=== PATIENT | male | born 1965 | race Caucasian/White ===

== ENCOUNTER 2023-11-21 07:54 | Outpatient (AMB) | payer BC, SELFPAY ==
--- NOTE | 2023-11-21 08:05 | MHC.OFFVIS ---
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 The patient states that his pain has gotten worse over the last 5 years in spite of continued non operative treatments. He describes his pain as sharp and severe in nature. The patient states that he has had injections in the past. The most recent injection gave him relief for only 1 week. Has done physical therapy which aggravated pain he has also tried Tylenol and anti-inflammatory medicines which gave him minimal relief. The patient has difficulty walking even short distances because of his pain. At this point is left knee pain is interfering with his activities of daily living and his ability to sleep well through the night. Allergies Penicillins Allergy (Intermediate, Verified 11/21/23 08:09) hives Medication List - Last Reconciled 11/21/23 by Eriberto Nuñez MD No Known Home Meds [facility] Surgical History (Updated 11/21/23 @ 08:14 by Analy Phipps CMA) History of surgery on right wrist (Unknown) History of hip surgery (Unknown) Social History (Updated 11/21/23 @ 08:15 by Analy Phipps CMA) Patient Tobacco Use Status: Never used Tobacco Physical Exam Const Other: Well-nourished well-developed very friendly male awake alert and oriented x3 in no acute distress Extrem Other: Bilateral lower extremity examination shows good capillary refill, no skin lesions noted, normal sensation light touch Left knee examination shows a minimal effusion, palpable crepitus with range of motion, pain with range of motion, range of motion from -3 degrees to 115 degrees, no instability Results Reviewed Results Reviewed: X-rays of the patient's left knee show severe joint space narrowing with grade 4 [id number] arthritis in the medial compartment, subchondral sclerosis, osteophyte formation, no acute bony abnormalities Assessment & Plan Assessment & Plan (1) Arthritis of left knee: Code(s): M17.12 - Unilateral primary osteoarthritis, left knee Plan Mr. Trevino presents with progressively worsening left knee pain due to end-stage degenerative joint disease. I had a lengthy discussion with the patient regarding the treatment options. At this point the patient has failed continued non operative treatments. The risks and benefits of left total knee replacement surgery were discussed at length with the patient. The patient wishes to proceed with surgery. I will have my office contact the patient to pick a surgery date. I will see the patient back 1 week prior to his surgery to answer any final questions that he might have. He will follow-up as instructed. I spent 22 minutes in reviewing the patient's records and imaging studies, seeing the patient and documenting in the medical record. Orders: Orders XR knee LT 3V Today M25.562 - Pain in left knee Coding Level of Care Code New Pt Level 2 (03346) Diagnoses Arthritis of left knee M17.12
== END 2023-11-21 08:32 | disposition home or self-care (01) ==
PROVIDERS: Visit Provider Orthopaedic Surgery
DX: M17.12 Unilateral primary osteoarthritis, left knee (principal)
CPT/HCPCS: 99202

== ENCOUNTER 2023-11-21 10:40 | Outpatient (REF) | payer BC, SELFPAY ==
--- NOTE | ~2023-11-21 | XR_ITS ---
EXAMINATION: XR KNEE, LEFT CLINICAL INFORMATION: Left knee pain. COMPARISON: None available. TECHNIQUE: 3 views of of the left knee. FINDINGS: Marked degenerative change seen with narrowing of the medial compartment with sclerosis and osteophyte formation. Milder narrowing of the lateral compartment and patellofemoral compartment. No chondrocalcinosis or joint effusions are seen. No fractures or bony destructive lesions. XR/XR knee LT 3V IMPRESSION: Tricompartmental degenerative changes most marked in the medial compartment.
== END 2023-11-21 10:41 | disposition home or self-care (01) ==
LOC: HO.HOSX 10:40
PROVIDERS: Visit Provider Orthopaedic Surgery
DX: M17.12 Unilateral primary osteoarthritis, left knee (principal)
CPT/HCPCS: 73562

== ENCOUNTER → 2024-01-06 08:47 | Outpatient (BNVA) | payer BC, SELFPAY | PROVIDERS: Visit Provider Orthopaedic Surgery ==

== ENCOUNTER 2024-01-22 07:57 | Outpatient (AMB) | payer BC, SELFPAY ==
--- NOTE | 2024-01-22 08:16 | A.OFFVIS_ITS ---
Intake Vital Signs 01/22/24 08:18 Height 5 ft 7 in Weight 248 lb BMI 38.8 Intake Visit Reasons: pre op left TKA 01/[address] Srivastava Note: Leon is a 58 year old male who presents with complaints of progressively worsening left knee pain. The patient states that his pain has gotten worse over the last 5 years in spite of continued non operative treatments. He describes his pain as sharp and severe in nature. The patient states that he has had injections in the past. The most recent injection gave him relief for only 1 week. Has done physical therapy which aggravated pain he has also tried Tylenol and anti-inflammatory medicines which gave him minimal relief. The patient has difficulty walking even short distances because of his pain. At this point is left knee pain is interfering with his activities of daily living and his ability to sleep well through the night. Allergies Penicillins Allergy (Severe, Verified 01/22/24 08:16) hives Medication List - Last Reconciled 01/22/24 by Eriberto Nuñez MD doxycycline hyclate 100 mg PO BID ergocalciferol (vitamin D2) 1,250 mcg PO QWEEK [facility] Medical History Low vitamin D level Arthritis Surgical History Hx of colonoscopy (~12/2022) History of surgery on right wrist (Unknown) History of hip surgery (~1978) Social History Are you a primary patient care to a significant other at home: No Do you presently have visiting nurse or other home services: No Patient Tobacco Use Status: Never used Tobacco Physical Exam Vital Signs: BMI result Body Mass Index 38.8 Const Other: Well-nourished well-developed very friendly male awake alert and oriented x3 in no acute distress Extrem Other: Bilateral lower extremity examination shows good capillary refill, no skin lesions noted, normal sensation light touch Left knee examination shows a minimal effusion, palpable crepitus with range of motion, pain with range of motion, range of motion from -3 degrees to 115 degrees, no instability Results Reviewed Results Reviewed: X-rays of the patient's left knee show end-stage degenerative joint disease with grade 4 [id number] arthritis, subchondral sclerosis, osteophyte formation, no acute bony abnormalities Assessment & Plan Assessment & Plan (1) Arthritis of left knee: Code(s): M17.12 - Unilateral primary osteoarthritis, left knee Plan Mr. Trevino presents with left knee pain due to end-stage degenerative joint disease. I had a lengthy discussion with the patient regarding the treatment options. At this point he has failed continued non operative treatments. The risks and benefits of left total knee replacement surgery were discussed at length with the patient. The patient wishes to proceed with surgery. guest services assistant will be consulted following his surgery for home physical therapy and nursing. The patient will follow-up as instructed. Feel free to call me at any time should questions regarding his orthopedic management arise. I spent 22 minutes in reviewing the patient's records and imaging studies, seeing the patient and documenting in the medical record. Coding Level of Care Code Est Pt Level 2 (20613) Diagnoses Arthritis of left knee M17.12
[2024-01-22 08:18] VITALS: BMI 38.8
== END 2024-01-22 08:48 | disposition home or self-care (01) ==
PROVIDERS: Visit Provider Orthopaedic Surgery
DX: M17.12 Unilateral primary osteoarthritis, left knee (principal)
CPT/HCPCS: 99024

== ENCOUNTER → 2024-01-22 07:57 | Outpatient (BNVA) | payer BC, SELFPAY | PROVIDERS: Visit Provider Orthopaedic Surgery ==

== ENCOUNTER 2024-01-27 08:12 | Inpatient (IN) | payer BC, SELFPAY ==
[2024-01-13 14:09] VITALS: BP 131/75; PULSE 97; RESP 16; O2SAT 93; BMI 38.0
--- NOTE | 2024-01-13 14:28 | P.CONAN_ITS ---
Documented by User: Radha Cid NP 01/20/24 10:22 HPI - Anesthesia Eval Consult details Narrative: 58yo M for Left Knee Replacement Total Medically cleared O2 sat 92-93% RA at PAT. No O2 sat provided by PCP or Ortho visit notes. Pt denies SOB. Never smoker. +Stop-bang. Sent for CXR. Results review with Dr John. 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 [facility] Active Problems Active Problems: All Active Problems (Updated 01/13/24 @ 14:04 by Carmen Parker RN) Arthritis of left knee (Acute) Left knee pain (Acute) Past Medical History Medical History Low vitamin D level Arthritis Family History Family history of problems with anesthesia: No Surgical History Surgical History Hx of colonoscopy (~12/2022) History of surgery on right wrist (Unknown) History of hip surgery (~1978) History of Problems with Anesthesia: No Social History Social History Are you a primary health care marketing specialist to a significant other at home: No Do you presently have visiting nurse or other home services: No Patient Tobacco Use Status: Never used Tobacco Use of substances other than those prescribed or required for medical reasons: No Have you been hit, kicked, punched, or otherwise hurt by someone within the past year? If so, by whom?: No Are you DNR?: No Advance Directives: No Advance Directives Information Provided: Yes Advance Directives on File: No Recently lost weight without trying: No Nutrition Risks: No Nutritional Risk Poor oral hygiene: No (full cleaning 11/2023) Meds Allergies Allergy/AdvReac Type Severity Reaction Status Date / Time Penicillins Allergy Severe hives Verified 01/27/24 08:13 Home Medications Medication Instructions Recorded Confirmed Last Taken Type ergocalciferol (vitamin D2) 1,250 1,250 mcg PO QWEEK 01/10/24 01/27/24 01/20/24 History mcg (50,000 unit) capsule Exam Height,Weight and Vital Signs: Height 5 ft 8 in Weight 113.398 kg Last Vital Signs Pulse 97 01/13/24 14:09 Resp 16 01/13/24 14:09 BP 131/75 01/13/24 14:09 Pulse Ox 93 01/13/24 14:09 O2 Del Method Room Air 01/13/24 14:09 Pertinent Lab Results Pertinent Lab Results: CBC and BMP 12/2023 from outside facility WNL Narrative Narrative: EKG 12/2023 NSR @ 64 Airway Mallampati Class: III TM Dist: <=3cm Neck ROM: Full Loose/Missing/Broken Teeth: Yes (Pulled molars) Heart: RRR Lungs: CTAB Assessment and Plan Assessment Anesthesia Assessment: Anesthesia Plan Discussed and PAT Visit Final Anesthetic Review Family History of Problems with Anesthesia: No History of Problems with Anesthesia: No Documented by User: Rosalba Bonilla MD 01/27/24 08:42 PMFSH Past Medical History Medical History Low vitamin D level Arthritis Surgical History Surgical History Hx of colonoscopy (~12/2022) History of surgery on right wrist (Unknown) History of hip surgery (~1978) Social History Social History Are you a primary health care marketing specialist to a significant other at home: No Do you presently have visiting nurse or other home services: No Patient Tobacco Use Status: Never used Tobacco Use of substances other than those prescribed or required for medical reasons: No Have you been hit, kicked, punched, or otherwise hurt by someone within the past year? If so, by whom?: No Are you DNR?: No Advance Directives: No Advance Directives Information Provided: Yes Advance Directives on File: No Recently lost weight without trying: No Nutrition Risks: No Nutritional Risk Poor oral hygiene: No (full cleaning 11/2023) Meds Allergies Allergy/AdvReac Type Severity Reaction Status Date / Time Penicillins Allergy Severe hives Verified 01/27/24 08:13 Home Medications Medication Instructions Recorded Confirmed Last Taken Type ergocalciferol (vitamin D2) 1,250 1,250 mcg PO QWEEK 01/10/24 01/27/24 01/20/24 History mcg (50,000 unit) capsule Assessment and Plan Assessment Anesthesia Assessment: Chart Reviewed Final Anesthetic Review NPO: Yes ASA Class: II (obesity ) Final Preanesthetic Review: No Changes in Pt Med Stat, Meds/Allgs Chart Reviewed, Consent Obtained/Reviewed and Anes Risks/Benef Reviewed Patient Risk: Intermediate Procedure Risk: Low Anesthetic Plan Anesthetic Plan: Spinal and Regional Block Disposition: Standard PACU
[2024-01-13 16:18] LABS: MRSA Nasal PCR NEGATIVE (Negative); SA Nasal PCR NEGATIVE (Negative)
[2024-01-27] VITALS (17 sets, daily range): BP systolic 85–155; BP diastolic 49–96; PULSE 51–88; RESP 14–18; TEMP 36.1–36.8; O2SAT 94–100; BMI 37.3
--- NOTE | ~2024-01-27 | XR_ITS ---
EXAMINATION: XR CHEST CLINICAL INFORMATION: Low O2 sat preop. COMPARISON: None available. TECHNIQUE: 2 views of the chest were obtained. FINDINGS: Lung volumes are low. There is no gross pneumothorax. Heart size is normal. Mild degenerative changes in the thoracic spine. No pleural effusion. Left perihilar and bilateral lower lung prominent markings may partially be accentuated due to low lung volumes, but differential considerations include an infectious/inflammatory process and/or atelectasis of uncertain age and etiology. XR/XR chest 2V IMPRESSION: Left perihilar and bilateral lower lung prominent markings may partially be accentuated due to low lung volumes, but differential considerations include an infectious/inflammatory process and/or atelectasis uncertain age and etiology. Repeat PA and lateral views with good inspiratory effort if possible recommended. Direct correlation with prior images is recommended and if prior images are provided, an addendum will be dictated. This study was presented today 01/14/2024 for interpretation. PSA staff will provide results to referring provider at this time.
[2024-01-27] MEDS: Lactated Ringers 1,000 ML 80 ML IVCONT (09:32)
--- NOTE | 2024-01-27 09:40 | PHA.MEDREC ---
Pharmacy Consult ? Medication Reconciliation Pharmacy has REVIEWED the medication reconciliation.
[2024-01-27 13:24] LABS: MRSA Nasal PCR NEGATIVE (Negative); SA Nasal PCR NEGATIVE (Negative)
--- NOTE | 2024-01-27 14:05 | P.BOP_ITS ---
Brief Operative Note Date of Service: 01/27/24 Pre-op diagnosis: Left knee degenerative joint disease Post-op diagnosis: same Procedure: Left total knee arthroplasty Implants: Frank Triathlon cemented posterior stabilized total knee arthroplasty with a femoral component size 5 left, tibial component size 6, polyethylene liner size 6 with 11 mm of thickness, an asymmetric patellar component size 32 with 10 mm of thickness Surgeon: Eriberto Nuñez MD Anesthesia: regional and spinal Was an Plumber Supervisor used for this Procedure?: Yes Plumber Supervisor: Ann Aguilera Estimated blood loss (mL): 200 Pathology: other (Bony fragments from the left femur, tibia and patella) Condition: stable Disposition: PACU
--- NOTE | 2024-01-27 14:07 | P.OP_ITS ---
Operative Note Operative Note Date of Service: 01/27/24 Narrative: After the patient was identified as Leon Trevino and his left knee was initialed by myself the patient was brought to the holding area where a left leg nerve block was performed by the anesthesiologist in routine fashion. The patient was then brought to the operating room where conscious sedation and spinal anesthesia were performed by the anesthesiologist in routine fashion. Because of the patient's allergy to penicillins he was given 900 mg of IV clindamycin preoperatively for infection prophylaxis. The patient's left lower extremity was prepped and draped in sterile fashion. A formal time-out was completed. The patient's left knee was placed onto a small bump to produce 30? of knee flexion during exposure. A #10 scalpel blade was used to make a midline incision extending 1 handbreadth proximal and distal to the patella. A second #10 scalpel blade was used to dissect the subcutaneous tissues down to the extensor mechanism. The subcutaneous flaps were maintained as thick as possible. A medial parapatellar arthrotomy was then performed using a #10 scalpel blade. The arthrotomy was begun just medial to the patellar tendon. The arthrotomy was continued 1 cm medial to the patella and then 5 mm into the medial aspect of the quadriceps tendon. The infrapatellar fat pad was partially excised to help with exposure. The soft tissue retinaculum was raised one-half of the way around the medial aspect of the proximal tibia. The patella was everted and the knee was flexed to 90?. There was no injury to the patellar tendon or its insertion onto the tibial tubercle. A drill bit was introduced into the distal aspect of the femur with a starting point 1 cm anterior to the origin of the posterior cruciate ligament. The intramedullary alignment kenneth was put into place. The distal alignment guide was set for a 5 degree valgus cut. The distal cutting block was put into place and was held with 4 pins. The intramedullary alignment kenneth was removed. Soft tissues were retracted in the distal femoral cut was made using a sagittal saw. The distal aspect of the femur measured to be a size 5 left component. Two drill holes were placed into the distal aspect of the femur marking 3? of external rotation. The distal cutting block was impacted into place and was held with 2 pins. Soft tissues were retracted and the 4 distal femoral cuts were made using a sagittal saw. Final notching and drilling of the distal aspect of the femur were performed in routine fashion. The trial femoral component was impacted into place. The knee was taken through a full range of motion. The patella tracked well. The patella was everted and the knee was flexed to 90?. The trial component was removed and our attention was directed to the proximal tibia. The medial and lateral menisci were removed using a #10 scalpel blade. A small rim of the medial meniscus was left intact to help prevent injury to the medial collateral ligament. A drill bit was then introduced into the proximal tibia with a starting point midway from medial to lateral and one-third of the way posteriorly. The intramedullary alignment kenneth was put into place. The proximal tibial cutting guide was placed over the alignment kenneth in line with the 2nd toe. The guide was held in place using 3 pins. The intramedullary alignment kenneth was removed. Soft tissues were retracted and the proximal tibial cut was made using a sagittal saw. The proximal tibia measured to be a size 6 component. The tibial tray was put into place with a 11 mm liner. The femoral component was impacted into place. The knee was taken through a full range of motion. There was full flexion and full extension. There was no instability with varus or valgus stress testing with the knee in flexion or extension. The patella tracked well with no medially directed force. The rotation of the tibial tray was marked using electrocautery with the knee in extension. The patella was everted and the knee was flexed to 90?. All trial components were removed. The tibial tray was placed onto the proximal tibia in line with the electrocautery meron. The tray was held in place using 3 pins. Final broaching of the proximal tibia was performed in routine fashion. The trial liner and trial femoral component were put into place. The knee was brought into extension and our attention was directed to the patella. The patella measured 25 mm in thickness. The patellar resection guide was set for a 10 mm resection. Soft tissues were retracted and the patella cut was made using a sagittal saw. The remaining patella measured 15 mm in thickness. The undersurface of the patella was measured to be a size 32 asymmetric component. Three drill holes were placed into the undersurface of the patella in routine fashion. The trial component w as put into place. The knee was taken through a full range of motion. The patella tracked well. The patella was everted and the knee was flexed to 90?. All trial components were removed. The knee was once again brought into extension and placed onto a small bump. The knee joint was irrigated with copious amounts of normal saline solution via pulse lavage while the cement was mixed. The patella was everted and the knee was flexed to 90?. A small amount of cement was placed along the posterior aspects of the tibial and femoral components. Cement was then pressurized into the proximal tibia. The tibial component was impacted into place. Any excess cement was removed. The polyethylene liner was then impacted into place. Cement was then pressurized into the distal aspect of the femur. A small amount of cement was placed into the intramedullary canal to help reduce bleeding. The femoral component was impacted into place. Any excess cement was removed. The knee was then brought into extension. Cement was pressurized into the undersurface of the patella. The patellar component was put into place and was held with a patella clamp. Any excess cement was removed. Once the cement had hardened the patellar clamp was removed. The knee was taken through a full range of motion. There was full flexion and extension. There was no instability with varus or valgus stress te sting with the knee in flexion or extension. The patella tracked well with no medially directed force. The knee joint was irrigated with copious amounts of normal saline solution via pulse lavage. Any significant bleeding vessels were coagulated. The patient's left knee was placed onto a small bump. The arthrotomy was closed with #2 Ethibond [id number] interrupted suture as well as #1 Vicryl [id number] interrupted suture. The wound was once again irrigated. The subcutaneous tissues were closed with 0 Vicryl and 2-0 Vicryl interrupted sutures. The skin was closed with skin carlota. Dry sterile dressing and Sj bandages were placed over the patient's left knee. The patient was awake and alert. The patient was transferred to the recovery room in stable condition.
[2024-01-27] MEDS: Lactated Ringers 1,000 ML 100 ML IVCONT (14:27)
[2024-01-27] MEDS: Aspirin 325 MG TABLET PO (19:46)
[2024-01-27] MEDS: methocarbamoL 500 MG TABLET PO (19:46)
[2024-01-27] MEDS: Clindamycin Phosphate/D5W 900 MG/50 ML PIGGYBACK 50 MG IV (20:41)
[2024-01-27] MEDS: oxyCODONE HCl ER 10 MG TAB.ER.12H PO (20:43)
[2024-01-27] MEDS: Gabapentin 100 MG CAPSULE PO (20:44)
[2024-01-27] MEDS: Celecoxib 200 MG CAPSULE PO (20:44)
[2024-01-27] MEDS: Docusate Sodium 100 MG CAPSULE PO (20:44)
[2024-01-27] MEDS: Acetaminophen 325 MG TABLET 650 MG PO (20:54)
[2024-01-28] VITALS (8 sets, daily range): BP systolic 96–136; BP diastolic 56–76; PULSE 69–80; RESP 16–18; TEMP 36.2–36.8; O2SAT 94–99
[2024-01-28] MEDS: Lactated Ringers 1,000 ML 100 ML IVCONT (00:26)
[2024-01-28] MEDS: Clindamycin Phosphate/D5W 900 MG/50 ML PIGGYBACK 50 MG IV ×2 (03:44→14:00)
[2024-01-28] MEDS: Aspirin 325 MG TABLET PO ×2 (05:52→18:08)
[2024-01-28 06:09] LABS: MANUAL DIFF FLAG NO
[2024-01-28 06:19] LABS: Basophils Percent Auto 0.2 % (0-2); Eosinophils Percent Auto 0.1 % (0-4); Hematocrit 35.3 % (42.0-52.0); Hemoglobin 12.3 g/dl (14.0-18.0); Imm Gran Abs Auto 0.04 X10*3/uL (0.00-0.03); Imm Gran Pct Auto 0.3 % (0.0-0.4); Lymphocytes Absolute Auto 1.4 X10*3/uL (1.2-4.9); Lymphocytes Percent Auto 11.2 % (20-40); Mean Corpuscular HGB Conc 34.8 g/dl (31.0-36.0); Mean Corpuscular Hemoglobin 30.3 pg (27.0-33.0); Mean Corpuscular Volume 86.9 fL (80.0-98.0); Mean Platelet Volume 9.9 fL (9.4-12.4); Monocytes Absolute Auto 0.7 X10*3/uL (0.1-1.2); Monocytes Percent Auto 5.2 % (2-11); Neutrophils Absolute Auto 10.4 x10*3/uL (2.0-8.3); Platelet Count 253 X10*3/uL (160-400); Red Blood Count 4.06 X10*6/uL (4.60-5.80); Red Cell Distribution Width 12.5 % (11.0-16.0); White Blood Count 12.5 X10*3/uL (4.8-10.8)
[2024-01-28 06:29] LABS: Anion Gap 11 (12-20); Blood Urea Nitrogen 13 mg/dL (9-16); Calcium 8.6 mg/dL (8.4-10.2); Carbon Dioxide 24 mmol/L (22-29); Chloride 107 mmol/L (96-108); Creatinine Clr Calc Pharmacy 115.9; Estimated Glomerular Filt Rate > 60; Glucose Fasting 104 mg/dL (60-99); Potassium 3.9 mmol/L (3.3-5.1); Sodium 138 mmol/L (135-145)
[2024-01-28] MEDS: methocarbamoL 500 MG TABLET PO ×3 (09:39→19:38)
[2024-01-28] MEDS: Docusate Sodium 100 MG CAPSULE PO ×2 (09:39→19:38)
[2024-01-28] MEDS: oxyCODONE HCl ER 10 MG TAB.ER.12H PO ×2 (09:39→19:38)
[2024-01-28] MEDS: 0.9 % Sodium Chloride Flush 3 ML SYRINGE IVFLUSH (09:39)
[2024-01-28] MEDS: Celecoxib 200 MG CAPSULE PO ×2 (09:39→19:39)
--- NOTE | 2024-01-28 12:08 | P.DS_ITS ---
DS: Providers Provider Date of Service: 01/28/24 Date of admission: 01/27/24 08:12 Primary care physician: Newton Miles MD Consults: 01/27/24 17:43 Consult to Hospitalist Routine Comment: Consulting Provider: Hospitalist Reason For Exam: routine medical management DS: Diagnosis Discharge Diagnosis (1) Status post total left knee replacement: Status: Acute DS: Summary Hospital Course Hospital Course: The patient underwent a successful Left total knee arthroplasty on 01/27/[address] Nuñez, was transferred to PACU and then to the floor to recover. During their stay, their vitals were stable, afebrile at 98.3 . Labs were unremarkable, H/H 12.3/35.3. POD 1 he was started on ASA for DVT ppx, they also received Physical Therapy services twice a day. Physical therapy should include gait training, ROM to tolerance and quad strength. He is WBAT. Prior to discharge, his dressing was clean dry and intact. The Aquacel dressing should remain intact and dry at all times. Any concerns with the dressing, please contact orthopedic office. No showering. The plan is to be discharged home with vn services Time Attestation Discharge Coordination Time (in mins): 30 Quality: Safe Use of Opioids Does Pt have an Active Cancer Diagnosis on the Problem List?: No Quality: Stroke Does the patient have a stroke diagnosis?: No Physical Exam Vital Signs: Vital Signs: Last Vital Signs Temp 98.3 F 01/28/24 11:00 Pulse 79 01/28/24 11:00 Resp 18 01/28/24 11:00 BP 96/56 L 01/28/24 11:00 Pulse Ox 94 01/28/24 11:00 O2 Del Method Room Air 01/28/24 11:00 BMI result Body Mass Index 37.3 Const: General: cooperative, healthy appearing and no acute distress Resp: Effort & Inspection: normal respiratory effort and able to speak in complete sentences Cardio: Rate: regular rate Peripheral pulses: Peripheral pulses 2+ throughout GI: Palpation (GI): Soft to palpation Skin: General skin exam: no rashes or lesions noted Extrem: Other: incision clean dry and intact. Marilyn intact. No erythema or joint effusion. Calf supple nontender. Neurovascularly intact. DS: Data Data Completed and Pending Pending studies at discharge: Pending at discharge 01/27/24 12:01 Surgical [PTH] Routine Labs on day of discharge: Laboratory Results - last 24 hr 01/27/24 01/28/24 08:21 05:43 WBC 12.5 H RBC 4.06 L Hgb 12.3 L Hct 35.3 L MCV 86.9 MCH 30.3 MCHC 34.8 RDW 12.5 Plt Count 253 MPV 9.9 Immature Gran % (Auto) 0.3 Neut % (Auto) 83.0 H Lymph % (Auto) 11.2 L [place] % (Auto) 5.2 Eos % (Auto) 0.1 Baso % (Auto) 0.2 Lymph # (Auto) 1.4 [place] # (Auto) 0.7 Eos # (Auto) 0.0 Baso # (Auto) 0.0 Abs Immat Gran (auto) 0.04 H Absolute Neuts (auto) 10.4 H Absolute Nucleated RBC 0.000 Nucleated RBC % (auto) 0.0 Sodium 138 Potassium 3.9 Chloride 107 Carbon Dioxide 24 Anion Gap 11 L BUN 13 Creatinine 0.83 Estim Creat Clear Calc 115.9 Estimated GFR > 60 Fasting Glucose 104 H Calcium 8.6 Nasal Screen MRSA (PCR) NEGATIVE Nasal S. aureus Screen NEGATIVE Nasal MRSA/S.aureus Interp SEE NOTE Discharge Plan Discharge Anticipated Discharge Date/Time: 01/28/24 12:03 Patient Disposition: Home Health Service Discharge Diagnosis: s/p lt tka Referrals: Ann Aguilera PA-C [Physician Classified Advertising Clerk] - 2 Weeks (02/13/24 14:15 [facility] [place] Ann Aguilera PA-C) Discharge Medications: New docusate sodium 100 mg Capsule 100 mg PO BID 14 Days Qty: 28 0RF celecoxib 200 mg Capsule 200 mg PO BID 30 Days Qty: 60 0RF aspirin 325 mg Tablet 325 mg PO Q12H 42 Days Qty: 84 0RF gabapentin 100 mg Capsule 100 mg PO BEDTIME 7 Days Qty: 7 0RF oxycodone 5 mg Tablet 5 mg PO Q4H PRN (Reason: Pain, Moderate(Pain Scale 4-6)) 7 Days Qty: 42 0RF Rx Instructions: Partial Fill upon patient request. acetaminophen 325 mg Tablet 650 mg PO Q6H PRN (Reason: Pain, Mild (Pain Scale 1-3)) 30 Days Qty: 240 0RF Continued ergocalciferol (vitamin D2) 1,250 mcg (50,000 unit) capsule 1,250 mcg PO QWEEK Discharge Orders: Discharge Order (Routine); Ordered 01/28/24 Ordered By: Santos Pretty Diet: Regular diet Activity on Discharge: Use cane or walker Stand Alone Forms: Patient Portal Discharge page Care Plan Goals: Restore function of joint Health Concerns: none Plan of Treatment: Physical Therapy Pain management DVT prophylaxis Assessment: Physical Therapy for Total knee arthroplasty: WBAT, gait training, ROM 0-12, quad strength * Limit stair climbing * No showering, no tub bath-keep dressing clean, dry and intact * No driving x6 weeks * Continue Aspirin twice a day x 6 weeks * Follow up with [facility] in 2 weeks: 02/12/2414:15 [facility] [place] [facility] SurgeonsAnn Aguilera PA-C
--- NOTE | 2024-01-28 12:09 | HO.POSTANES ---
Post Anesthesia Evaluation Post Anesthesia Evaluation Date of Service: 01/28/24 Vital Signs: Vital Signs Temp Pulse Resp BP Pulse Ox O2 Del Method 01/28/24 11:00 98.3 F 79 18 96/56 L 94 Room Air 01/28/24 08:10 71 114/67 95 01/28/24 07:00 97.1 F 71 18 114/67 95 Room Air 01/28/24 03:00 97.3 F 80 18 110/66 96 Room Air Anesthesia: Spinal and Nerve Block Mental Status: Awake Pain Control: Satisfactory Nausea/Vomiting: None Hydration: Adequate Anesthesia-Related Issues: No Anes. Related Issues
--- NOTE | 2024-01-28 12:37 | MHC.CM.PN ---
EMR REVIEWED, PT S/P [facility] DE LE[facility]N MET W/PT WHO REPORTS HE HAS A ROMMQTE HE RENTS TO, HAS A CANE, FWW AND WC AT HOME AND AT BASELINE HE DOESN'T USE ANY AD'S, NO HOME SERVICES, GOAL AND PLAN IS FOR PT TO RETURN HOME TODAY W/NEW [facility] FOR HOME PT. PT VERIFIES PCP DR TORRES IS CORRECT, COVID VACC X2 AND PT EDUCTAED ON AND COMPLETED A HCP NAMING HIS SISTER REINIER FUENTES [phone] HIS HCA AND NO ALTERNATE AT THIS TIME, COPY UPLOADED TO [facility] AND PLACED IN PAPER CHART.
--- NOTE | 2024-01-28 15:39 | P.PNOP_ITS ---
Subjective Subjective Date of Service: 01/28/24 Interval history: POD 1 s/p LT TKA no overnight events resting in bed- was planning to go home today but after lunch he attempted to work with PT and was in a lot of pain and felt nauseaus denies sob, palpitations, cp Physical Exam Vital Signs: Vital Signs: Last Vital Signs Temp 97.8 F 01/28/24 15:00 Pulse 70 01/28/24 15:00 Resp 18 01/28/24 15:00 BP 113/65 01/28/24 15:00 Pulse Ox 99 01/28/24 15:00 O2 Del Method Room Air 01/28/24 15:00 BMI result Body Mass Index 37.3 Const: General: cooperative, healthy appearing and no acute distress Resp: Effort & Inspection: normal respiratory effort and able to speak in complete sentences Cardio: Rate: regular rate Peripheral pulses: Peripheral pulses 2+ throughout GI: Palpation (GI): Soft to palpation Skin: General skin exam: no rashes or lesions noted Extrem: Other: incision clean dry and intact. [place] intact. No erythema or joint effusion. Calf supple nontender. Neurovascularly intact. Procedures Date of Service Date of Service: 01/28/24 Progress Note: A&P Assessment and plan (1) Status post total left knee replacement: Status: Acute Assessment and Plan: * Continue pain mgmnt * Begin Aspirin for dvt ppx * begin PT for LT TKA * Dispo planning-Pending PT eval, pain mgmnt Need for continued inpatient stay: pain control, pt clearance Time Spent With Patient Time: Total time managing care of this patient today ____ minutes. Quality Stroke Does the patient have a stroke diagnosis?: No VTE Prior VTE?: No VTE Risk Level:: Surgical - very high VTE Device Contraindication: N/A - Device Ordered VTE Drug Contraindication: N/A - Med Ordered
--- NOTE | 2024-01-28 16:03 | MHC.CM.PN ---
PT'S DC CANCELLED D/T INCREASED PAIN AND NAUSEA, ANTIC DC TOMORROW 01/28, CM WILL CONT TO FOLLOW DC NEEDS.
[2024-01-28] MEDS: oxyCODONE HCl Immed Release 5 MG TABLET PO (18:13)
[2024-01-28] MEDS: HYDROmorphone HCl 0.5 MG/0.5 ML SYRINGE IVPUSH (19:20)
[2024-01-28] MEDS: Acetaminophen 325 MG TABLET 650 MG PO (19:28)
[2024-01-28] MEDS: Gabapentin 100 MG CAPSULE PO (19:39)
[2024-01-28] MEDS: oxyCODONE HCl Immed Release 5 MG TABLET 10 MG PO (22:11)
[2024-01-29] VITALS: BP 131/74; PULSE 77; RESP 19; TEMP 36.8; O2SAT 96
[2024-01-29] MEDS: 0.9 % Sodium Chloride Flush 3 ML SYRINGE IVFLUSH ×2 (00:30→07:27)
[2024-01-29 03:41] VITALS: BP 145/87; PULSE 73; RESP 19; TEMP 36.8; O2SAT 97
[2024-01-29] MEDS: Aspirin 325 MG TABLET PO (05:59)
[2024-01-29] MEDS: oxyCODONE HCl Immed Release 5 MG TABLET PO ×2 (06:13→07:32)
[2024-01-29 06:37] LABS: MANUAL DIFF FLAG NO
[2024-01-29 06:41] LABS: Basophils Absolute Auto 0.1 X10*3/uL (0.0-0.2); Basophils Percent Auto 0.5 % (0-2); Eosinophils Absolute Auto 0.1 X10*3/uL (0.0-0.4); Hematocrit 35.8 % (42.0-52.0); Hemoglobin 12.3 g/dl (14.0-18.0); Imm Gran Abs Auto 0.05 X10*3/uL (0.00-0.03); Imm Gran Pct Auto 0.5 % (0.0-0.4); Lymphocytes Absolute Auto 1.7 X10*3/uL (1.2-4.9); Lymphocytes Percent Auto 17.9 % (20-40); Mean Corpuscular HGB Conc 34.4 g/dl (31.0-36.0); Mean Corpuscular Hemoglobin 30.4 pg (27.0-33.0); Mean Corpuscular Volume 88.6 fL (80.0-98.0); Mean Platelet Volume 10.2 fL (9.4-12.4); Monocytes Absolute Auto 0.8 X10*3/uL (0.1-1.2); Monocytes Percent Auto 8.4 % (2-11); Neutrophils Absolute Auto 6.6 x10*3/uL (2.0-8.3); Neutrophils Percent Auto 71.7 % (45-73); Platelet Count 215 X10*3/uL (160-400); Red Blood Count 4.04 X10*6/uL (4.60-5.80); White Blood Count 9.2 X10*3/uL (4.8-10.8)
[2024-01-29 06:58] LABS: Anion Gap 9 (12-20); Blood Urea Nitrogen 11 mg/dL (9-16); Calcium 8.8 mg/dL (8.4-10.2); Carbon Dioxide 28 mmol/L (22-29); Chloride 104 mmol/L (96-108); Creatinine Clr Calc Pharmacy 110.6; Estimated Glomerular Filt Rate > 60; Glucose Fasting 99 mg/dL (60-99); Potassium 4.3 mmol/L (3.3-5.1); Sodium 137 mmol/L (135-145)
[2024-01-29] MEDS: oxyCODONE HCl ER 10 MG TAB.ER.12H PO (07:25)
[2024-01-29] MEDS: methocarbamoL 500 MG TABLET PO (07:26)
[2024-01-29] MEDS: Docusate Sodium 100 MG CAPSULE PO (07:26)
[2024-01-29] MEDS: Celecoxib 200 MG CAPSULE PO (07:26)
[2024-01-29 08:00] VITALS: BP 139/92; PULSE 84; RESP 18; TEMP 36.7; O2SAT 97
[2024-01-29 08:15] VITALS: BP 145/87; PULSE 73; O2SAT 97
--- NOTE | 2024-01-29 10:32 | W.MHC.F2F ---
Service Date Service Date: 01/29/24 Encounter Date of encounter: 01/29/24 Reasons for Services Signs and symptoms assessed: Weakness, poor balance, poor gait mechanics Reason for physical therapy: home safety and mobility, therapeutic exercises, restore joint function, gait/transfer training, ADL training and energy conservation Reason for occupational therapy: home safety and mobility, therapeutic exercises, restore joint function, gait/transfer training, ADL training and energy conservation Overseeing Care: Juan Decker Homebound: Leaving the home is medically contraindicated at this time without the asist of a device and/or another person due th the listed conditions above and below. Reason homebound: unsteady gait / fall risk, pain with ambulation, poor balance / fall risk and unable to drive Homebound supporting statement: Pt. is considered home bound due to recent surgery. Unable to drive, poor balance, poor gait mechanics. Certification: Based on the above findings, I certify that this patient is confined to the home and needs intermittent senior living care, physical therapy and/or speech therapy, or continues to need occupational therapy. The patient is under my care, and I have initiated the establishment of the plan of care. The patient will be followed by a physician who will periodically review the plan of care. Time Spent With Patient Time: Total time managing care of this patient today ____ minutes.
--- NOTE | 2024-01-29 12:14 | MHC.CM.PN ---
PT MEDICALLY CLEARED FOR DC HOME W/NEW [facility] FOR HOME PT, PT HAS ARRANGED TRANSPORT
== END 2024-01-29 11:40 | disposition home health service (06) | DRG 302 ==
LOC: HO.SSSA 08:13 → HO.S3 18:18
PROVIDERS: Nurse Practitioner; Physician Assistant; Admitting Provider Orthopaedic Surgery; PCP Internal Medicine; Visit Provider Orthopaedic Surgery
PROC: 0SRD0J9 Replacement of Left Knee Joint with Synthetic Substitute, Cemented, Open Approach (ICD-10-PCS; CPT 27447; principal; 2024-01-27 10:40)
DX: M17.12 Unilateral primary osteoarthritis, left knee (principal); G89.18 Other acute postprocedural pain; Z79.899 Other long term (current) drug therapy
CPT/HCPCS: 36415; 71046; 80048; 85025; 86850; 86900; 86901; 87640; 87641; 88305; 88311; 97110; 97116; 97161; 97530; C1776; J0131; J0665; J0736; J1100; J1170; J1885; J2250; J2371; J2704; J3370; J7120

== ENCOUNTER → 2024-01-27 08:12 | Outpatient (BNV) | payer BC, SELFPAY | PROVIDERS: Admitting Provider Orthopaedic Surgery; PCP Internal Medicine; Visit Provider Orthopaedic Surgery | DX: Z47.1 Aftercare following joint replacement surgery (principal); Z96.652 Presence of left artificial knee joint | CPT/HCPCS: 27447; 99024; G0180 ==

== ENCOUNTER 2024-02-13 09:15 | Outpatient (REF) | payer BC, SELFPAY ==
--- NOTE | ~2024-02-13 | XR_ITS ---
EXAMINATION: XR KNEE, LEFT CLINICAL INFORMATION: Pain. COMPARISON: Radiographs dated 11/21/2023. TECHNIQUE: Lateral and axial views of the left knee are submitted, together with an AP upright view of the bilateral knees. FINDINGS: Prosthetic components of the left total knee arthroplasty are appropriately aligned. No periprosthetic fracture. Gas from recent surgery is present in the joint and surrounding soft tissues. A joint effusion is present. The lateral medial joint space compartments of the right knee are well-maintained. No significant varus or valgus configuration is noted. XR/XR knee LT 3V IMPRESSION: Appropriate alignment of the left total knee arthroplasty.
== END 2024-02-13 09:16 | disposition home or self-care (01) ==
LOC: HO.HOSX 09:15
PROVIDERS: Visit Provider Physician Assistant
DX: Z47.1 Aftercare following joint replacement surgery (principal); Z96.652 Presence of left artificial knee joint
CPT/HCPCS: 73562

== ENCOUNTER 2024-02-13 14:04 | Outpatient (AMB) | payer BC, SELFPAY ==
--- NOTE | 2024-02-13 14:22 | A.OFFVIS_ITS ---
Intake Intake Visit Reasons: PO left TKA 01/27/[address] Srivastava Note: Leon is a 58 year old male who presents today for a post op appointment s/p left TKA 01/27/24 Patient reports he is doing well. He states that everything feels great. Allergies Penicillins Allergy (Severe, Verified 02/13/24 14:25) hives HPI PO left TKA 01/27/24 with HPI Details 58-year-old male who presents in the off ice today 17 days status post left total knee arthroplasty, which was performed on 01/27/[address] Nuñez. Patient reports he is doing well and everything feels great. PFS Medical History Low vitamin D level Arthritis Surgical History Hx of colonoscopy (~12/2022) History of surgery on right wrist (Unknown) History of hip surgery (~1978) Social History Household Members: None Housing: House Are you a primary healthcare receptionist to a significant other at home: No Do you presently have visiting nurse or other home services: No Patient Tobacco Use Status: Never used Tobacco service: No Review of Systems Const All systems reviewed & are unremarkable except as noted in HPI and below Physical Exam Const General: cooperative, healthy appearing and no acute distress Resp Effort & Inspection: normal respiratory effort and able to speak in complete sentences Cardio Rate: regular rate Peripheral pulses: Peripheral pulses 2+ throughout GI Palpation (GI): Soft to palpation Skin Lesions: no lesions Rashes: no rashes Extrem Other: Left knee: Incision site is clean, dry, and intact. Marilyn intact. No surrounding erythema or drainage. No signs of infection. ROM is 0-120 degrees. NVI. Assessment & Plan Assessment & Plan (1) Status post total left knee replacement: Code(s): Z96.652 - Presence of left artificial knee joint Plan Mr. Trevino is a 58-year-old male who presents in the office today 17 days status post left total knee arthroplasty, which was performed on 01/27/[address] Nuñez. Patient reports he is doing well and everything feels great. A refill for Gabapentin 100 mg PO bedtime, Docusate sodium 100 mg PO BID, and Oxycodone 5 mg PO Q4H PRN. Patient will transition to out patient physical therapy. Follow up will be in [address] Nuñez, or sooner if needed. X-rays of the left knee which were obtained while in the office today and were reviewed by me, Ann Aguilera PA-C, revealed intact orthopedic hardware with proper alignment. Current pain regiment: -Acetaminphen 650 mg PO Q6H PRN -Oxycodone 5 mg PO Q4H PRN Orders: Orders XR knee LT 3V 02/13/24 M25.569 - Pain in unspecified knee Patient Instructions: Scribed by Sola Martin, manager medical writing, for Ann Aguilera PA-C on 02/13/2024 at 2:07 pm, EST. Coding Level of Care Code Global (34108) Diagnoses Status post total left knee replacement Z96.652
== END 2024-02-13 15:01 | disposition home or self-care (01) ==
PROVIDERS: Visit Provider Physician Assistant
DX: Z96.652 Presence of left artificial knee joint (principal)
CPT/HCPCS: 99024

== ENCOUNTER 2024-03-05 09:00 | Outpatient (AMB) | payer BC, SELFPAY ==
--- NOTE | 2024-03-05 09:04 | A.OFFVIS_ITS ---
Intake Visit Reasons: 6 week PO left TKA 01/27/[address] Srivastava Note: Leon is a 58 year old male who presents for his post operative appointment s/p left TKA on 01/27/24 Patient reports he is still having some pain, more painful at night. He continues with his home exercise program. He does take oxycodone as needed for his discomfort. Allergies Penicillins Allergy (Severe, Verified 03/05/24 09:08) hives Medication List - Last Reconciled 03/05/24 by Eriberto Nuñez MD acetaminophen 650 mg (2 x 325 mg) PO Q6H PRN 30 days aspirin 325 mg PO Q12H 42 days celecoxib 200 mg PO BID 30 days clindamycin HCl 600 mg (2 x 300 mg) PO ONCE 1 day docusate sodium 100 mg PO BID 14 days ergocalciferol (vitamin D2) 1,250 mcg PO QWEEK gabapentin 100 mg PO BEDTIME 7 days oxycodone 5 mg PO Q6H PRN 7 days PFSH Medical History Low vitamin D level Arthritis Surgical History Hx of colonoscopy (~12/2022) History of surgery on right wrist (Unknown) History of hip surgery (~1978) Social History Household Members: None Housing: House Are you a primary healthcare network pricing consultant to a significant other at home: No Do you presently have visiting nurse or other home services: No Patient Tobacco Use Status: Never used Tobacco service: No Physical Exam Const Other: Well-nourished well-developed very friendly male awake alert and oriented x3 in no acute distress Extrem Other: Bilateral lower extremity examination shows good capillary refill, no skin lesions noted, normal sensation light touch Left knee examination shows that the surgical incision is well healed, no erythema, full active extension and flexion to 120 degrees, his patella tracks well Assessment & Plan Assessment & Plan (1) Status post total left knee replacement: Code(s): Z96.652 - Presence of left artificial knee joint Category: Medical Plan Mr. Trevino continues to do very well after undergoing left total knee replacement surgery on 01/27/2024. He will continue with his home exercise program. He does know to take antibiotics before any dental work. He will contact me prior to his follow-up appointment in 8 weeks should any questions or concerns arise. Feel free to call me at any time should questions regarding his orthopedic management arise. Medications: New oxycodone Partial Fill upon patient request. 5 mg PO Q8H PRN 40 tabs 0RF pain Coding Level of Care Code Global (65528) Diagnoses Status post total left knee replacement Z96.652
== END 2024-03-05 09:33 | disposition home or self-care (01) ==
PROVIDERS: Visit Provider Orthopaedic Surgery
DX: Z96.652 Presence of left artificial knee joint (principal)
CPT/HCPCS: 99024

== ENCOUNTER → 2024-03-05 09:00 | Outpatient (BNVA) | payer BC, SELFPAY | PROVIDERS: Visit Provider Orthopaedic Surgery ==

== ENCOUNTER 2024-04-28 08:38 | Outpatient (AMB) | payer BC, SELFPAY ==
--- NOTE | 2024-04-28 08:40 | MHC.OFFVIS ---
Vital Signs 04/28/24 08:55 Height 5 ft 8 in Weight 250 lb BMI 38.0 Intake Visit Reasons: PO left TKA 01/27/24 with Intake Note: Leon is a 58 year old male who presents today for a post operative visit s/p Left TKA 01/27/24. Patient reports that he is doing well with no concerns. He continues with his home stretching program. He denies any fevers or chills. He does not take any medicines for his discomfort. Allergies Penicillins Allergy (Severe, Verified 03/05/24 09:08) hives [facility] Medical History Low vitamin D level Arthritis Surgical History Hx of colonoscopy (~12/2022) History of surgery on right wrist (Unknown) History of hip surgery (~1978) Social History Household Members: None Housing: House Are you a primary patient centered care specialist to a significant other at home: No Do you presently have visiting nurse or other home services: No Patient Tobacco Use Status: Never used Tobacco service: No Physical Exam Vital Signs: BMI result Body Mass Index 38.0 Extrem Other: Left knee examination shows that the surgical incision is well healed, no erythema, full active extension and flexion to 120 degrees, his patella tracks well Assessment & Plan Assessment & Plan (1) Status post total left knee replacement: Code(s): Z96.652 - Presence of left artificial knee joint Category: Surgical Plan Mr. Trevino continues to do very well after undergoing left total knee replacement surgery on 01/27/2024. He will continue with his home exercise program. He does know to take antibiotics before any dental work. Will contact me prior to his follow-up appointment in 2 months should any questions or concerns arise. Feel free to call me at any time should questions regarding his orthopedic management arise. Coding Level of Care Code Global (58206) Diagnoses Status post total left knee replacement Z96.652
[2024-04-28 08:55] VITALS: BMI 38.0
== END 2024-04-28 09:13 | disposition home or self-care (01) ==
PROVIDERS: PCP Internal Medicine; Visit Provider Orthopaedic Surgery
DX: Z47.1 Aftercare following joint replacement surgery (principal); Z96.652 Presence of left artificial knee joint
CPT/HCPCS: 99213

== ENCOUNTER → 2024-04-28 08:38 | Outpatient (BNVA) | payer BC, SELFPAY | PROVIDERS: PCP Internal Medicine; Visit Provider Orthopaedic Surgery ==

== ENCOUNTER 2024-06-30 08:10 | Outpatient (AMB) | payer BC, SELFPAY ==
--- NOTE | 2024-06-30 08:20 | A.OFFVIS_ITS ---
Vital Signs 06/30/24 08:25 Height 5 ft 8 in Weight 250 lb BMI 38.0 Intake Visit Reasons: OV- left TKA follow up 01/27/[address] Srivastava Note: Leon is a 58 year old male who presents to the office today for a left TKA follow up 01/27/24. Patient reports he is doing well. He reports mild intermittent discomfort in his left knee. He continues with his home exercise program. He does not take any medicines for his discomfort. He denies any fevers or chills. Allergies Penicillins Allergy (Severe, Verified 06/30/24 08:24) hives [facility] Medical History Low vitamin D level Arthritis Surgical History Hx of colonoscopy (~12/2022) History of surgery on right wrist (Unknown) History of hip surgery (~1978) Social History Household Members: None Housing: House Are you a primary health care legal assistant to a significant other at home: No Do you presently have visiting nurse or other home services: No Patient Tobacco Use Status: Never used Tobacco service: No Physical Exam Vital Signs: BMI result Body Mass Index 38.0 Const Other: Well-nourished well-developed very friendly male awake alert and oriented x3 in no acute distress Extrem Other: Bilateral lower extremity examination shows good capillary refill, no skin lesions noted, normal sensation light touch Left knee examination shows that the surgical incision is well healed, no erythema, full active extension and flexion to 120 degrees, his patella tracks well Results Reviewed Results Reviewed: X-rays of the patient's left knee taken today show a total knee arthroplasty in good position with no signs of loosening, no acute bony abnormalities Assessment & Plan Assessment & Plan (1) Left knee pain: Code(s): M25.562 - Pain in left knee Category: Medical Plan Mr. Trevino continues to do very well after undergoing left total knee replace ment surgery on 01/27/2024. He will continue with his home exercise program. Does know to take antibiotics before any dental work. He will contact me prior to his annual follow-up appointment should any questions or concerns arise. Feel free to call me at any time should questions regarding his orthopedic management arise. I spent 22 minutes in reviewing the patient's records and imaging studies, seeing the patient and documenting in the medical record. Orders: Orders XR knee LT 3V Today M25.562 - Pain in left knee Coding Level of Care Code Est Pt Level 3 (93842) Diagnoses Left knee pain M25.562
[2024-06-30 08:25] VITALS: BMI 38.0
== END 2024-06-30 08:45 | disposition home or self-care (01) ==
PROVIDERS: PCP Internal Medicine; Visit Provider Orthopaedic Surgery
DX: Z47.1 Aftercare following joint replacement surgery (principal); Z96.652 Presence of left artificial knee joint; M25.562 Pain in left knee
CPT/HCPCS: 99213

== ENCOUNTER 2024-06-30 10:37 | Outpatient (REF) | payer BC, SELFPAY ==
--- NOTE | ~2024-06-30 | XR_ITS ---
EXAMINATION: XR KNEE, LEFT CLINICAL INFORMATION: M25.562 - Pain in left knee COMPARISON: Knee radiographs 02/13/2024 TECHNIQUE: 3 views of the knee FINDINGS: No acute fracture or dislocation. Status post left total knee arthroplasty in anatomic alignment. No evidence of hardware fracture or complication. Quadriceps tendon enthesopathy. No joint effusion. Soft tissues are unremarkable. XR/XR knee LT 3V IMPRESSION: * Status post left total knee arthroplasty in anatomic alignment. No evidence of hardware fracture or complication. Electronically signed by: Adelaida Cloud MD 07/23/2024 03:33 PM EDT
== END 2024-06-30 10:38 | disposition home or self-care (01) ==
LOC: HO.HOSX 10:37
PROVIDERS: Visit Provider Orthopaedic Surgery
DX: M25.562 Pain in left knee (principal)
CPT/HCPCS: 73562

== ENCOUNTER 2024-12-09 08:28 | Outpatient (AMB) | payer BC, SELFPAY ==
--- NOTE | 2024-12-09 08:38 | A.OFFVIS_ITS ---
Vital Signs 12/09/24 08:41 Height 5 ft 8 in Weight 260 lb BMI 39.5 Intake Visit Reasons: Left shoulder pain and weakness Intake Note: Leon is a 59 year old right hand dominant male who presents with complaints of progressively worsening left shoulder pain and weakness. The patient states that he 1st injured his left shoulder several years ago. States that he had an MRI at that time which showed a full-thickness rotator cuff tear involving ?1 of the tendons?. He did not undergo surgery. Has done physical therapy exercises which aggravated his pain. He has also tried Tylenol and anti-inflammatory medicines which gave him minimal relief. Has had cortisone injections in the past which gave him only temporary relief. Reports weakness when lifting his left hand above shoulder height. Allergies Penicillins Allergy (Severe, Verified 12/09/24 08:40) hives Medication List - Last Reconciled 12/09/24 by Eriberto Nuñez MD No Known Home Meds [facility] Medical History Low vitamin D level Arthritis Surgical History Hx of colonoscopy (~12/2022) History of surgery on right wrist (Unknown) History of hip surgery (~1978) Social History (Updated 12/09/24 @ 08:42 by CLARISSA Kingston) Household Members: None Housing: House Are you a primary congregational care pastor to a significant other at home: No Do you presently have visiting nurse or other home services: No Patient Tobacco Use Status: Never used Tobacco service: No 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, 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 Physical Exam Vital Signs: BMI result Body Mass Index 39.5 Const Other: Well-nourished well-developed very friendly male awake alert and oriented x3 in no acute distress Extrem Other: Bilateral upper extremity examination shows good capillary refill, no skin lesions noted, normal sensation light touch Left shoulder examination shows decreased active range of motion but almost full passive range of motion when compared to his right shoulder, 4/5 strength with supraspinatus testing, positive impingement signs, no instability Results Reviewed Results Reviewed: X-rays of the patient's left shoulder taken previously show a type 2 acromion, severe acromioclavicular joint narrowing, no acute bony abnormalities Assessment & Plan Assessment & Plan (1) Rotator cuff insufficiency of left shoulder: Code(s): M25.312 - Other instability, left shoulder Category: Medical Plan Mr. Trevino presents with progressively worsening left shoulder pain and weakness most likely due to worsening of his rotator cuff tear. Thus, I will send the patient for an MRI of his left shoulder for further evaluation. I will see him back once the MRI is completed to discuss the findings and treatment options. Feel free to call me at any time should questions regarding his orthopedic management arise. I spent 22 minutes in reviewing the patient's records and imaging studies, seeing the patient and documenting in the medical record. Orders: Orders XR shoulder LT min 2V Today M25.512 - Pain in left shoulder MR shoulder LT wo con Today M25.312 - Other instability, left shoulder Coding Level of Care Code Est Pt Level 3 (12590) Complex EM visit Add On G2211 Diagnoses Rotator cuff insufficiency of left shoulder M25.312
[2024-12-09 08:41] VITALS: BMI 39.5
== END 2024-12-09 09:02 | disposition home or self-care (01) ==
PROVIDERS: PCP Internal Medicine; Visit Provider Orthopaedic Surgery
DX: M25.312 Other instability, left shoulder (principal)
CPT/HCPCS: 99213

== ENCOUNTER → 2024-12-09 08:31 | Outpatient (BNV) | payer BC, SELFPAY | PROVIDERS: Visit Provider Radiology Diagnostic Radiology | DX: M19.012 Primary osteoarthritis, left shoulder (principal) | CPT/HCPCS: 73030 ==

== ENCOUNTER 2024-12-09 10:03 | Outpatient (REF) | payer BC, SELFPAY ==
--- NOTE | ~2024-12-09 | XR_ITS ---
EXAMINATION: XR SHOULDER 2 OR MORE VIEWS LEFT HISTORY: M25.512 - Pain in left shoulder COMPARISON: There are no prior studies available for comparison. FINDINGS: Two views of the left shoulder are submitted. Osseous mineralization is normal. There is irregularity of the humeral head in the region of the greater tuberosity which may represent an old healed fracture. No acute displaced fracture is seen. The glenohumeral joint is maintained. There is moderate osteoarthritis of the AC joint, with joint space narrowing and osteophyte formation. A tiny soft tissue calcification adjacent to the humeral head may be related to the rotator cuff. XR/XR shoulder LT min 2V IMPRESSION: Moderate osteoarthritis of the AC joint. Possible old healed fracture involving the greater tuberosity. Clinical correlation is recommended. Probable rotator cuff calcification. Electronically signed by: Hira Pinto MD 12/10/2024 07:12 AM FREDY DOTY
--- OUTSIDE RECORDS SUMMARY | 2024-12-10 13:14 | XMS_ITS | Clinical Summary ---
Author Organization [facility] Address [address] [place] [phone] Phone Care Team Providers Care Broke Handler Name Role Phone Newton Miles MD Primary Care Provider Allergies Active Allergy Reactions Criticality Noted Date Comments Penicillins Hives High 03/20/2006 Medications Medication Sig Dispensed Refills Start Date End Date Status ergocalciferol (VITAMIN D-2) 1,250 mcg (50,000 unit) capsule Take 1 Capsule by mouth once a week. 01/01/2024 Active doxycycline hyclate (VIBRA-TABS) 100 mg tablet Take 1 Tablet by mouth 2 times daily. 01/21/2024 Active Active Problems Problem Noted Date Diagnosed Date Morbid obesity with BMI of 40.0-44.9, adult 10/11 Arthritis of knee 02/08/2014 Encounters Date Type Department Care Team Description 11/18/2024 Telephone Adult [address] [phone] Newton Miles MD Referral (Referral for [facility]) from Last 3 Months Immunizations Name Administration Dates Next Due Td Tetanus diptheria (Tdvax) 7yo and older 09/06 Tdap Tetanus diptheria acell ular pertussis (Boostrix; Adacel) 7yo and older 06/03/2014 Surgical History Surgery Date Site/Laterality Comments OTHER SURGICAL HISTORY PROCEDURE: [place] ARTHROSCOPY HIP W/FEMOROPLASTY; COMMENT: 1978 COLONOSCOPY 02/13/16 PROCEDURE: HISTORICAL COLONOSCOPY; COMMENT: tics, hemorrhoids and mediocre bowel prep; repeat in 1 year OTHER SURGICAL HISTORY 05/03/2017 PROCEDURE: COLON CA SCRN NOT HI RSK IND; COMMENT: adenoma, tics and hemorrrhoids; repeat in 5 yrs Medical History Medical History Date Comments Achilles tendinitis DX:Achilles tendinitis Family History Medical History Relation Name Comments Kidney cancer Father Bladder Cancer Mother Coronary artery disease Neg Hx Diabetes Neg Hx Relation Name Status Comments Father rectal cancer Mother Alive bladder cancer, Social History Tobacco Use Types Packs/Day Years Used Date Smoking Tobacco: Never Smokeless Tobacco: Never Alcohol Use Standard Drinks/Week Comments Not Currently 0 (1 standard drink = 0.6 oz pur e alcohol) Sex and Gender Information Value Date Recorded Sex Assigned at Male 10/29/2024 9:16 AM EST Gender Identity Male 10/29/2024 9:16 AM EST Sexual Orientation Straight 10/29/2024 9: 16 AM EST Obstetrics History Last Filed Vital Signs Vital Sign Reading Time Taken Comments Blood Pressure 122/74 01/21/2024 2:28 PM EDT Pulse 86 01/21/2024 2:28 PM EDT Temperature - - Respiratory Rate - - Oxygen Saturation - - Inhaled Oxygen Concentration - - Weight 113 kg (250 lb) 01/21/2024 2:28 PM EDT Height 172.7 cm (5' 8 ) 01/21/2024 2:28 PM EDT Body Mass Index 38.01 01/21/2024 2:28 PM EDT Plan of Treatment Health Maintenance Due Date Last Done Comments Zoster Vaccines (1 of 2) 2014 Depression Screening 10/21/2022 HIV Screening 10/21/2022 Social Influencers of Health Screening 10/21/2022 DTaP,Tdap,and Td Vaccines (3 - Td or Tdap) 06/03/2024 06/03/2014, 09/06/2005 COVID-19 Vaccine (3 - 2023-2 5 season) 2024 07/27/2021, 06/29/2021 Influenza Vaccine (#1) 2024 RSV Immunization Patients 60 + Years Old (1 - Risk 60-74 years 1-dose series) 2024 Colorectal Cancer Screening: Colonoscopy 12/23/2028 12/23/2023 Cholesterol Screening (Lipid Panel) 01/01/2029 01/01/2024 Hepatitis C Screening Completed 02/23/2016 HIB Vaccines Aged Out No longer eligi ble based on patient's age to complete this topic HPV Vaccines Aged Out No longer eligi ble based on patient's age to complete this topic Hepatitis A Vaccines Aged Out No long er eligible based on patient's age to complete this topic Hepatitis B Vaccines Aged Out No long er eligible based on patient's age to complete this topic IPV Vaccines Aged Out No longer eligi ble based on patient's age to complete this topic MMR Vaccines Aged Out No longer eligi ble based on patient's age to complete this topic Meningococcal ACWY Vaccine Aged Out N o longer eligible based on patient's age to complete this topic Pneumococcal Vaccine: Pediatrics (0 to 5 Years) and At-Risk Patients (6 to 64 Years) Aged Out No longer eligible b ased on patient's age to complete this topic RSV Immunization Patients Under 20 months Aged Out No longer eligible b ased on patient's age to complete this topic Varicella Vaccines Aged Out No longer eligible based on patient's age to complete this topic Procedures Procedure Name Priority Date/Time Associated Diagnosis Comments LIPID PANEL Routine 01/01/2024 COLONOSCOPY Routine 12/23/2023 HEPATITIS C SCREENING Routine 02/23/2016 from Last 3 Months or Most Recently Relevant to Health Maintenance Results * (ABNORMAL) Lipid panel (01/01/2024) [facility] LDL/HDL Ratio 3 0 - 4 Triglycerides 82 0 - 150 mg/dL Cholesterol 212(A) 0 - 200 mg/dL HDL 77 40 mg/dL LDL Cholesterol 119(A) 0 - 100 mg/dL Blood Venous blood specimen / Unknown Historical Provider LAB BLOOD ORDERAB LES * Colonoscopy (12/23/2023) Pathologist [facility] Colonoscopy No Interpretation , Abstracted Anatomical Region Laterality Modality Other Historical Provider MD JOURDAN Buitrago * Hepatitis C Screening (02/23/2016) Pathologist [facility] Hepatitis C Screening Abstracted Historical Provider MD JOURDAN Buitrago from Last 3 Months or Most Recently Relevant to Health Maintenance Care Teams Broke Handler Relationship Specialty Start Date End Date Newton Miles MD [address] [place] [address] PCP - General Internal Medicine 06/12/22
--- OUTSIDE RECORDS SUMMARY | 2024-12-10 13:14 | XMS_ITS | Encounter Summary ---
Author Organization [facility] Address [address] [place] [address] Care Team Providers Care Earth Observations Chief Scientist Name Role Phone Newton Miles MD Primary Care Provider [phone] Reason for Referral * Consultation (Routine) - Closed Specialty Diagnoses / Procedures Referred By Annabel swenson Referred To Contact Orthopaedics Diagnoses Left shoulder pain, unspecified chronicity Arthritis of knee Newton Miles MD [address] [place] [phone] Eriberto Nuñez MD [address] [place] [phone] Referral ID Status Reason Start Date Expiration Date V isits Requested Visits Authorized [id number] Closed Specialty Services Required 11/23/2024 11/23/2025 6 6 Reason for Visit * Reason Onset Date Comments Referral 11/18/2024 Referral for [facility] Encounter Details Date Type Department Care Team (Late st Contact Info) Description 11/18/2024 Telephone Adult Medicine [address] [phone] Newton Miles MD [address] [place] [phone] Referral (Referral for [facility]) Social History Tobacco Use Types Packs/Day Years Used Date Smoking Tobacco: Never Smokeless Tobacco: Never Alcohol Use Standard Drinks/Week Comments Not Currently 0 (1 standard drink = 0.6 oz pur e alcohol) Sex and Gender Information Value Date Recorded Sex Assigned at Male 10/29/2024 9:16 AM EST Gender Identity Male 10/29/2024 9:16 AM EST Sexual Orientation Straight 10/29/2024 9: 16 AM EST documented as of this encounter Progress Notes * Newton Miles MD - 11/18/2024 10:11 PM EST Ortho referral is ordered * Karissa Chamberlain - 11/18/2024 3:50 PM EST Request for an insurance referral Caller: n/a Office: [facility] Insurance: [facility] ID: [id number] Provider: Dr Eriberto Nuñez DOS: 12/09/24 Visits: 6 Dx code: M25.512 IMPORTANT Pls copy and paste this into the order. Otherwise, it will not be processed as an ins referral documented in this encounter Plan of Treatment Scheduled Referrals Name Type Priority Associated Diagnoses Order Schedule Ambulatory referral to Orthopedic Outpatient Referral Routine Left shoulder pain, unspecified chronicity Arthritis of knee 1 Occurrences starting 11/18/2024 until 11/18/2025 documented as of this encounter Visit Diagnoses Diagnosis Left shoulder pain, unspecified chronicity- Primary Arthritis of knee Unspecified arthropathy, lower leg documented in this encounter Care Teams Earth Observations Chief Scientist Relationship Specialty Start Date End Date Newton Miles MD [address] [place] [address] PCP - General Internal Medicine 06/12/22 documented as of this encounter
== END 2024-12-09 10:04 | disposition home or self-care (01) ==
LOC: HO.HOSX 10:03
PROVIDERS: Visit Provider Orthopaedic Surgery
DX: M25.512 Pain in left shoulder (principal)
CPT/HCPCS: 73030

== ENCOUNTER → 2024-12-29 07:12 | Outpatient (BNV) | payer BC, SELFPAY | PROVIDERS: PCP Internal Medicine; Visit Provider Radiology Diagnostic Radiology | DX: M25.312 Other instability, left shoulder (principal); M75.122 Complete rotator cuff tear or rupture of left shoulder, not specified as traumatic; S43.432A Superior glenoid labrum lesion of left shoulder, initial encounter | CPT/HCPCS: 73221 ==

== ENCOUNTER 2024-12-29 07:15 | Outpatient (REF) | payer BC, SELFPAY ==
--- NOTE | ~2024-12-29 | MR_ITS ---
CLINICAL HISTORY: M25.312 - Other instability, left shoulder MR left shoulder without contrast ankle Comparison: None Findings: No fracture or dislocation of the osseous structures. Superior subluxation of the humeral head with a trace amount of edema in the acromion and the adjacent humeral head at their contact sites. There is osteophytosis of the inferior aspect of the acromion.. There is joint space narrowing, osteophytosis and a trace amount of subchondral edema of the acromioclavicular joint, degenerative. Small joint effusion. Small amount of fluid in the subacromial/subdeltoid and subcoracoid bursa. There is a complete tear of the supraspinatus tendon with retraction and moderate muscular atrophy. There is a complete tear of the infraspinatus tendon with retraction and severe muscular atrophy. There is prominent increased signal in the subscapularis tendon with suspected partial tear. No retraction or muscular atrophy. Teres minor is unremarkable. The labrum is torn throughout. There is partial-thickness glenohumeral chondromalacia with near-complete cartilage loss of the humeral head and a fissure within the cartilage of the superior aspect of the glenoid. There is humeral osteophytosis. The bicipital labral anchor is increased in signal. The long head of the biceps tendon is enlarged and increased in signal with partial/interstitial tears. No complete tear or retraction. The coracoacromial ligament is intact. The coracohumeral ligament is thinned. Cutaneous and subcutaneous tissues are normal. The quadrilateral space is unremarkable. Impression: Complete tear of the supraspinatus and infraspinatus tendons with retraction and muscular atrophy. Subsequent superior subluxation of the humeral head with a trace amount of edema in the acromion and the adjacent humeral head at their contact sites with osteophytosis of the inferior aspect of the acromion. Severe subscapularis tendinopathy with partial tear. Small joint effusion. Small amount of fluid in the subacromial/subdeltoid and subcoracoid bursa. Extensive labral tear. Biceps tendinopathy with partial tear of the long head of the biceps tendon. This document has been electronically signed by: Sara Marina MD on 12/30/2024 14:55:44
--- OUTSIDE RECORDS SUMMARY | 2024-12-29 07:19 | XMS_ITS | Clinical Summary ---
Author Organization [facility] Address [address] [place] [phone] Phone Care Team Providers Care Chief Meter Reader Name Role Phone Newton Miles MD Primary Care Provider Allergies Active Allergy Reactions Criticality Noted Date Comments Penicillins Hives High 03/20/2006 Medications ergocalciferol (VITAMIN D-2) 1,250 mcg (50,000 unit) capsule Take 1 Capsule by mouth once a week. 01/01/2024 Active doxycycline hyclate (VIBRA-TABS) 100 mg tablet Take 1 Tablet by mouth 2 times daily. 01/21/2024 Active Active Problems Problem Noted Date Diagnosed Date Morbid obesity with BMI of 40.0-44.9, adult 10/11 Arthritis of knee 02/08/2014 Encounters Date Type Department Care Team Description 11/18/2024 Telephone Adult [address] [phone] Newton Miles MD Referral (Referral for [facility]) from Last 3 Months Immunizations Name Administration Dates Next Due Td Tetanus diptheria (Tdvax) 7yo and older 09/06 Tdap Tetanus diptheria acell ular pertussis (Boostrix; Adacel) 7yo and older 06/03/2014 Surgical History Surgery Date Site/Laterality Comments OTHER SURGICAL HISTORY PROCEDURE: [place] ARTHROSCOPY HIP W/FEMOROPLASTY; COMMENT: 1978 COLONOSCOPY 02/13/16 [...] Assigned at Male 10/29/2024 9:16 AM EST Legal Sex Male 11:46 AM EST Gender Identity Male 10/29/2024 9:16 [...] Health Maintenance Due Date Last Done Comments Pneumococcal Vaccine: 50+ Years (1 of 1 - PCV) 2014 Zoster Vaccines (1 of 2) 2014 Depression [...] patient's age to complete this topic Meningococcal B Vacine Aged Out No lo nger eligible based on patient's age to complete [...] Maintenance Results * (ABNORMAL) Lipid panel (01/01/2024) LDL/HDL Ratio 3 0 - 4 Triglycerides 82 0 - 150 mg/dL Cholesterol 212(A) 0 - 200 mg/dL HDL 77 >=40 mg/dL LDL Cholesterol 119(A) 0 - 100 mg/dL Blood Venous blood specimen / Unknown Historical Provider LAB BLOOD ORDERABLES Lakisha l Result * Colonoscopy (12/23/2023) Pathologist Pending sale to [facility] Colonoscopy No Interpretation , Abstracted Anatomical Region Laterality Modality Other Historical Provider HEALTH MAINTENANCE Final Result * Hepatitis C Screening (02/23/2016) Hepatitis C Screening Abstracted Historical Provider HEALTH MAINTENANCE Final Result from Last 3 Months or Most Recently Relevant to Health Maintenance Insurance Care Teams Chief Meter Reader Relationship Specialty Start Date End Date Newton Miles MD [address] [place] [address] PCP - General Internal Medicine 06/12/22
--- OUTSIDE RECORDS SUMMARY | 2024-12-29 07:19 | XMS_ITS | Encounter Summary ---
Author Organization [facility] Address [address] [place] [address] Care Team Providers Care Community Health Worker Name Role Phone Newton Miles MD Primary Care Provider [phone]- [phone] Reason for Referral * Consultation (Routine) - Closed Specialty Diagnoses / Procedures Referred By Annabel swenson Referred To Contact Orthopaedics Diagnoses Left shoulder pain, unspecified chronicity Arthritis of knee Newton Miles MD [address] [place] [phone] Phone: tel: fax: Eriberto Nuñez MD [address] [place] [phone] Phone: tel: Referral ID Status Reason Start Date Expiration Date V isits Requested Visits Authorized [id number] Closed Specialty Services Required 11/23/2024 11/23/2025 6 6 Reason for Visit * Reason Onset Date Comments Referral 11/18/2024 Ref[place] [facility] Encounter Details Date Type Department Care Team (Late st Contact Info) Description 11/18/2024 Telephone Adult Medicine [address] [phone] Newton Miles MD [address] [place] [phone] Referral (Ref[place] [facility] Social History Tobacco Use Types [...] for an insurance referral Caller: n/a Office: [facility] Insurance: [facility] ID: [id number] Provider: Dr Eriberto Nuñez DOS: 12/09/24 Visits: [...] leg documented in this encounter Care Teams Community Health Worker Relationship Specialty Start Date End Date Newton Miles MD [address] [place] [address] PCP - General Internal Medicine 06/12/22 documented as of this encounter
== END 2024-12-29 07:16 | disposition home or self-care (01) ==
LOC: HO.MRI 07:15
PROVIDERS: PCP Internal Medicine; Visit Provider Orthopaedic Surgery
DX: S46.812A Strain of other muscles, fascia and tendons at shoulder and upper arm level, left arm, initial encounter (principal)
CPT/HCPCS: 73221

== ENCOUNTER 2025-01-20 07:33 | Outpatient (AMB) | payer BC, SELFPAY ==
--- NOTE | 2025-01-20 07:48 | MHC.OFFVIS ---
Vital Signs 01/20/25 07:49 Height 5 ft 8 in Weight 260 lb BMI 39.5 Intake Visit Reasons: MRI Review Lt Shld Intake Note: Leon is a 59 year old right hand dominant male who presents with complaints of progressively worsening left shoulder pain and weakness. The patient states that he 1st injured his left shoulder several years ago. States that he had an MRI at that time which showed a full-thickness rotator cuff tear involving ?1 of the tendons?. He did not undergo surgery. Has done physical therapy exercises which aggravated his pain. He has also tried Tylenol and anti-inflammatory medicines which gave him minimal relief. Has had cortisone injections in the past which gave him only temporary relief. Reports weakness when lifting his left hand above shoulder height. The patient states that his symptoms have gotten somewhat better over the last few weeks. Allergies Penicillins Allergy (Severe, Verified 01/20/25 07:49) hives Medication List - Last Reconciled 01/20/25 by Eriberto Nuñez MD No Known Home Meds [facility] Medical History Low vitamin D level Arthritis Surgical History Hx of colonoscopy (~12/2022) History of surgery on right wrist (Unknown) History of hip surgery (~1978) Social History (Updated 12/09/24 @ 08:42 by CLARISSA Kingston) Household Members: None Housing: House Are you a primary childcare administrator to a significant other at home: No Do you presently have visiting nurse or other home services: No Patient Tobacco Use Status: Never used Tobacco service: No 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, 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 Physical Exam Vital Signs: BMI result Body Mass Index 39.5 Const Other: Well-nourished well-developed very friendly male awake alert and oriented x3 in no acute distress Extrem Other: Left shoulder examination shows decreased range of motion when compared to his right shoulder, 3/5 strength with supraspinatus testing, no instability Results Reviewed Results Reviewed: MRI of the patient's left shoulder shows a large, chronic rotator cuff tear involving the supraspinatus and infraspinatus tendons with retraction almost to the glenoid as well as a high-riding humeral head Assessment & Plan Assessment & Plan (1) Rotator cuff insufficiency of left shoulder: Code(s): M25.312 - Other instability, left shoulder Category: Medical Plan Mr. Trevino presents with left shoulder pain and weakness due to a chronic rotator cuff tear. I had a lengthy discussion with the patient regarding the treatment options. At this point the patient's symptoms are tolerable to him. He wishes to hold off on reverse total shoulder replacement for as long as possible. I agree with this plan. Will continue with his activity modifications. He will follow up with me on an as-needed basis should his symptoms worsen in any way. Feel free to call me at any time should questions regarding his orthopedic management arise. I spent 22 minutes in reviewing the patient's records and imaging studies, seeing the patient and documenting in the medical record. Coding Level of Care Code Est Pt Level 3 (87593) Complex EM visit Add On G2211 Diagnoses Rotator cuff insufficiency of left shoulder M25.312
[2025-01-20 07:49] VITALS: BMI 39.5
== END 2025-01-20 08:17 | disposition home or self-care (01) ==
LOC: HO.HOS 07:33
PROVIDERS: PCP Internal Medicine; Visit Provider Orthopaedic Surgery
DX: M75.122 Complete rotator cuff tear or rupture of left shoulder, not specified as traumatic (principal); M25.312 Other instability, left shoulder
CPT/HCPCS: 99213

== ENCOUNTER → 2025-01-20 07:33 | Outpatient (BNVA) | payer BC, SELFPAY | PROVIDERS: PCP Internal Medicine; Visit Provider Orthopaedic Surgery ==

== ENCOUNTER 2025-08-02 13:41 | Outpatient (AMB) | payer OTHER, SELFPAY ==
--- NOTE | 2025-08-02 14:03 | MHC.OFFVIS ---
Vital Signs 08/02/25 14:10 Height 5 ft 8 in Weight 260 lb BMI 39.5 Intake Visit Reasons: Right shoulder pain and weakness Intake Note: Leon is a 59 year old male right hand dominant who presents with complaints of progressively worsening right shoulder pain and weakness. The patient did injure his left shoulder several years ago. He had an MRI of his left shoulder which showed a chronic, massive rotator cuff tear. The patient states that he injured his right shoulder several months ago. He fell onto his right arm and had acute onset of pain. Since that time he has had difficulty lifting his right hand above shoulder height. He has tried physical therapy which seemed to aggravate his pain. He has also tried Tylenol and anti-inflammatory medicines which gave him minimal relief. The patient states that his right shoulder pain and weakness or now interfering with his activities of daily living and his ability to sleep well through the night. Allergies Penicillins Allergy (Severe, Verified 08/02/25 14:10) hives Medication List - Last Reconciled 08/02/25 by Eriberto Nuñez MD No Known Home Meds [facility] Medical History Low vitamin D level Arthritis Surgical History Hx of colonoscopy (~12/2022) History of surgery on right wrist (Unknown) History of hip surgery (~1978) Social History (Updated 12/09/24 @ 08:42 by CLARISSA Kingston) Household Members: None Housing: House Are you a primary child care center administrator to a significant other at home: No Do you presently have visiting nurse or other home services: No Patient Tobacco Use Status: Never used Tobacco service: No 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, 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 Physical Exam Vital Signs: BMI result Body Mass Index 39.5 Const Other: Well-nourished well-developed very friendly male awake alert and oriented x3 in no acute distress Extrem Other: Right shoulder examination shows decreased active range of motion when compared to his left shoulder, 4/5 strength with supraspinatus testing, positive impingement signs, no instability Results Reviewed Results Reviewed: X-rays of the patient's right shoulder taken at [facility] show no acute bony abnormalities Assessment & Plan Assessment & Plan (1) Rotator cuff insufficiency of right shoulder: Code(s): M25.311 - Other instability, right shoulder Category: Medical Plan Mr. Trevino presents with right shoulder pain and weakness most likely due to a full-thickness rotator cuff tear. Thus, I will send the patient for an MRI of his right shoulder for further evaluation. I will see him back once the MRI is completed to discuss the findings and treatment options. Feel free to call me at any time should questions regarding his orthopedic management arise. I spent 20 minutes in reviewing the patient's records and imaging studies, seeing the patient and documenting in the medical record. Orders: Orders MR shoulder RT wo con 08/03/25 M25.311 - Other instability, right shoulder Coding Level of Care Code Est Pt Level 3 (43784) Complex EM visit Add On G2211 Diagnoses Rotator cuff insufficiency of right shoulder M25.311
[2025-08-02 14:10] VITALS: BMI 39.5
--- OUTSIDE RECORDS SUMMARY | 2025-08-02 16:08 | XMS_ITS | Clinical Summary ---
Demographics Address [address] [place] [address] [place] [phone] Home Phone
== END 2025-08-02 14:34 | disposition home or self-care (01) ==
LOC: HO.HOS 13:41
PROVIDERS: PCP Internal Medicine; Visit Provider Orthopaedic Surgery
DX: M25.311 Other instability, right shoulder (principal)
CPT/HCPCS: 99213

== ENCOUNTER → 2025-08-02 13:41 | Outpatient (BNVA) | payer OTHER, SELFPAY | PROVIDERS: PCP Internal Medicine; Visit Provider Orthopaedic Surgery | DX: M25.511 Pain in right shoulder (principal); M25.311 Other instability, right shoulder | CPT/HCPCS: 99212 ==

== ENCOUNTER 2025-08-30 07:23 | Outpatient (REF) | payer OTHER, SELFPAY ==
--- NOTE | ~2025-08-30 | MR_ITS ---
EXAMINATION: MR SHOULDER WITHOUT CONTRAST, RIGHT CLINICAL INFORMATION: Instability COMPARISON: None available. TECHNIQUE: MRI of the shoulder without contrast was performed on a high-field scanner. FINDINGS: ROTATOR CUFF: Supraspinatus and infraspinatus: Full-thickness tear of the supraspinatus and anterior fibers infraspinatus measuring 2.4 cm AP, up to approximately 1.4 cm medial-lateral. There is moderate grade partial thickness articular aspect tear of the infraspinatus posterior to this, involving a segment approximately 0.7 x 2.6 cm (AP x ML). Intact fibers demonstrate mild-moderate tendinosis. Teres minor: Intact. Subscapularis tendon: Mild tendinosis, with intrasubstance partial tear distally. No muscle atrophy or fatty infiltration. BICEPS: Proximal biceps tendinosis with fraying/partial tearing. CORACOACROMIAL ARCH: The undersurface of the acromion is curved with no subacromial spur. Moderate acromioclavicular arthritis. LABRUM/CAPSULE: Superior and posterior labral degenerative fraying/tearing. T2 signal in the posterior portion of the inferior labrum, suspicious for a tear. GLENOHUMERAL JOINT/MARROW: There is edema in the posterior, lateral humeral head, with the component of linear/curvilinear signal changes. This could reflect osseous contusion, possible component of undisplaced fracture plane. No aggressive marrow replacing lesion. Small effusion, mild synovitis/debris. MR/MR shoulder RT wo con IMPRESSION: * Full-thickness tear of the supraspinatus and anterior fibers infraspinatus measuring 2.4 cm AP. Moderate grade partial-thickness articular aspect tear posterior to this measuring 0.7 cm AP. Mild-moderate supraspinatus and infraspinatus tendinosis. * Mild subscapularis tendinosis, intrasubstance partial tear distally. * Proximal biceps tendinosis, fraying/partial tearing. * Superior and posterior labral degenerative fraying/tearing. Probable tear of the posterior portion of the inferior labrum. *Moderate acromioclavicular arthritis. *Findings in the posterior lateral humeral head could reflect osseous contusion, possible component of undisplaced fracture plane. Clinically correlate. *Small glenohumeral joint effusion. Mild synovitis/debris. Electronically signed by: John Espinoza MD 08/30/2025 10:08 AM EDT
--- OUTSIDE RECORDS SUMMARY | 2025-08-30 07:25 | XMS_ITS | Encounter Summary ---
Author Organization [facility] Address [address] [place] [address] Phone Care Team Providers Care Qa Auditor Name Role Phone Newton Miles MD Unavailable [phone] Newton Miles MD Primary Care Provider Encounter Details Date Type Department Care Team (Late st Contact Info) Description 09/01/2024 Procedure Pass MRI, [facility] - [address], [address] [place] [address] Social History Tobacco Use Types Packs/Day Years Used Date Smoking Tobacco: Never Assessed Education Answer Date Recorded Are you interested in more education? Not on ryan e 2024 Are you concerned about learning? Not on file 2024 No 2024 No 2024 Digital Access Answer Date Recorded No 2024 No 2024 Reliable internet access at home? Not on file 2024 Device with a working camera? Not on file Sex and Gender Information Value Date Recorded Sex Assigned at Male 07/08/2024 10:42 AM EDT Legal Sex Male 10:39 AM EDT Gender Identity Male 07/08/2024 10:42 AM EDT Sexual Orientation Straight 07/08/2024 10 :42 AM EDT documented as of this encounter Plan of Treatment Not on file documented as of this encounter Visit Diagnoses Not on filedocumented in this encounter Care Teams Qa Auditor Relationship Specialty Start Date End Date Newton Miles MD PCP - General Internal Medicine 09/01/24 Newton Miles MD Internal Medicine 08/06/24 documented as of this encounter Additional Source Comments The information contained in this document represents components of the legal health record. It is not the complete legal health record.[facility]
--- OUTSIDE RECORDS SUMMARY | 2025-08-30 07:26 | XMS_ITS | Encounter Summary ---
Author Organization [facility] Address [address] [place] [address] Phone Care Team Providers Care Swimming Pool Cleaner Name Role Phone Newton Miles MD Unavailable [phone] Newton Miles MD Primary Care Provider Encounter Details Date Type Department Care Team (Late st Contact Info) Description 10/01/2024 Procedure Pass [facility]PT [address] [place] [id number] Social History Tobacco Use Types Packs/Day Years Used Date Smoking Tobacco: Never Smokeless Tobacco: Never Alcohol Use Standard Drinks/Week Comments Yes 4 (1 standard drink = 0.6 oz pur e alcohol) Education Answer Date Recorded Are you interested in more education? Not on ryan e 2024 Are you concerned about learning? Not on file 2024 No 2024 No 2024 Digital Access Answer Date Recorded No 2024 No 2024 Reliable internet access at home? Not on file 2024 Device with a working camera? Not on file Intimate Partner Violence Answer Date R ecorded Are you denied basic needs s uch as food, clothing, or medical care? No 10/01/2024 In the past 12 months have y ou been in a relationship with a person who hurts, threatens, or tries to control you? No 10/01/2024 Are you denied basic needs s uch as food, clothing, or medical care? No 10/01/2024 In the past 12 months have y ou been in a relationship with a person who hurts, threatens, or tries to control you? No 10/01/2024 Sex and Gender Information Value Date Recorded Sex Assigned at Male 07/08/2024 10:42 AM EDT Legal Sex Male 10:39 AM EDT Gender Identity Male 07/08/2024 10:42 AM EDT Sexual Orientation Straight 07/08/2024 10 :42 AM EDT documented as of this encounter Functional Status * Calculated C-SSRS Risk Score (Lifetime/Recent) Answer Date of Assessment Author No Risk Indicated 10/01/2024 8:03 AM Sara Mckinnon, RN * [place] Suicide Severity Rating Scale (Screener/Recent Self-Report) Question Answer Date of Assessment Author 1. Wish to be (Past 1 Month) No 024 8:03 AM Sara Mckinnon, RN 2. Non-Specific Active Suici dia Thoughts (Past 1 Month) No 10/01/2024 8:03 AM Hector Mckinnon RN 6. Suicidal Behavior (Lifetime) No 8:03 AM Sara Mckinnon RN documented as of this encounter Plan of Treatment Not on file documented as of this encounter Visit Diagnoses Not on filedocumented in this encounter Care Teams Swimming Pool Cleaner Relationship Specialty Start Date End Date Newton Miles MD PCP - General Internal Medicine 09/01/24 Newton Miles MD Internal Medicine 08/06/24 documented as of this encounter Additional Source Comments The information contained in this document represents components of the legal health record. It is not the complete legal health record.[facility]
--- OUTSIDE RECORDS SUMMARY | 2025-08-30 07:26 | XMS_ITS | Encounter Summary ---
Author Organization [facility] Address [address] [place] [address] Phone Care Team Providers Care Administrative Appeals Tribunal Member Name Role Phone Newotn Miles MD Unavailable [phone] Newton Miles MD Primary Care Provider Encounter Details Date Type Department Care Team (Latest Contact Info) Description 09/07/2024 Ancillary Orders X-ray, [facility] - [address], [address] [place] [address] Beena Hagan MD [address] [place] [address] [address] [place] [address] [email or web address] Bilateral ankle pain, unspecified chronicity (Primary Dx); Insertional tendinopathy of left Achilles tendon Social History Tobacco Use Types Packs/Day Years [...] on file documented as of this encounter Results * XR Orbit For Foreign Body (Bilateral) (09/09/2024 2:50 PM EDT) Anatomical Region Laterality Modality Face Radiographic Ml ging 09/09/2024 2:5 1 PM EDT Impressions 09/09/2024 2:52 PM EDT No radiopaque foreign body. Narrative 09/09/2024 2:52 PM EDT XR ORBIT FOR FOREIGN BODY (BILATERAL) Referring clinician's provided indication for this examination in [facility]: * Ankle pain, tendon abnormality suspected, neg xray; Retained Foreign Body suspected; Left Ankle MRI evaluating insertional achilles tendonopathy COMPARISON: No relevant comparison. FINDINGS: No radiopaque foreign body. Multifocal dental augmentation and extraction. Procedure Note Lamin Anderson MD - 09/09/2024 XR ORBIT FOR FOREIGN BODY (BILATERAL) Referring clinician's provided indication for this examination in [facility]: *Ankle pain, tendon abnormality suspected, neg xray; Retained Foreign Bodysuspected; Left Ankle MRI evaluating insertional achilles tendonopathy COMPARISON: No relevant comparison. FINDINGS: No radiopaque foreign body. Multifocal dental augmentation andextraction. IMPRESSION: No radiopaque foreign body. Beena Dewey MD IMG XR HEAD AND SHUNT SERIES Final Result documented in this encounter Visit Diagnoses Diagnosis Bilateral ankle pain, unspecified chronicity- Primary Insertional tendinopathy of left Achilles tendon Bilateral ankle pain, unspecified chronicity Insertional tendinopathy of left Achilles tendon documented in this encounter Care Teams Administrative Appeals Tribunal Member Relationship Specialty Start Date End Date Newton Miles MD PCP - General Internal Medicine 09/01/24 Newton Miles MD Internal Medicine 08/06/24 documented as of this encounter Additional Source Comments The information contained in this document represents components of the legal health record. It is not the complete legal health record.[facility]
--- OUTSIDE RECORDS SUMMARY | 2025-08-30 07:26 | XMS_ITS | Clinical Summary ---
Author Organization [facility] Address [address] [facility] [address] [place] [address] Phone Care Team Providers Care Industrial Psychologist Name Role Phone Newton Miles MD Unavailable [phone] Newton Miles MD Primary Care Provider Allergies Active Allergy Reactions Criticality Noted Date Comments Penicillins Hives High 09/30/2024 Medications oxyCODONE 5 MG immediate release tablet Take 1 tablet (5 mg total) by mouth every 6 (six) hours as needed. Partial fill ok 24 tablet 4 Active Additional Information Patient not taking.Reported on 10/16/2024 ondansetron (ZOFRAN) 4 MG tablet Take 1 tablet (4 mg total) by mouth every 8 (eight) hours as needed for nausea. 21 tablet 4 Active docusate sodium (COLACE) 100 MG capsule Take 1 capsule (100 mg total) by mouth 2 (two) times a day. 4 Active aspirin 81 MG EC tabletIndicatio ns:Pain of both heels Take 1 tablet (81 mg total) by mouth daily. 45 tablet 4 Active Active Problems Problem Noted Date Diagnosed Date Achilles tendinitis of both lower extremities Pain of both heels 09/01/2024 Achilles tendon contracture, bilateral 4 Social History Tobacco Use Types Packs/Day Years Used Date Smoking Tobacco: Never Smokeless Tobacco: Never Tobacco Cessation:Counseling Given: Not Answered Alcohol Use Standard Drinks/Week Comments Yes 4 [...] Orientation Straight 07/08/2024 10 :42 AM EDT Last Filed Vital Signs Vital Sign Reading Time Taken Comments Blood Pressure 140/88 10/01/2024 1:28 PM EST Pulse 58 10/01/2024 1:15 PM EST Temperature 35.6 C (96 F) 10/01/2024 1:26 PM EST Respiratory Rate 16 10/01/2024 1:26 PM EST Oxygen Saturation 98% 10/01/2024 1:26 PM EST Inhaled Oxygen Concentration - - Weight 113.4 kg (250 lb) 10/01/2024 8:01 AM EST Height 172.7 cm (5' 8 ) 10/01/2024 8:01 AM EST Body Mass Index 38.01 10/01/2024 8:01 AM EST Plan of Treatment Health Maintenance Due Date Last Done Comments LIPID PANEL 1964 DEPRESSION SCREENING 1976 HEPATITIS C SCREENING 1982 HIV ONE-TIME SCREENING (18-6 5 YEARS) 1982 SCREENING FOR DIABETES 1999 COLOGUARD 2009 COLONOSCOPY 2009 COLORECTAL CANCER SCREENING 2009 FIT TEST 2009 FOBT 2009 SIGMOIDOSCOPY 2009 VIRTUAL COLONOSCOPY 2009 PNEUMOCOCCAL VACCINES (50+ years) (1 of 1 - PCV) 2014 ZOSTER VACCINES (1 of 2) 2014 Adult Td,Tdap Booster 06/03/2024 06/03/2014 , 09/06/2005 INFLUENZA VACCINE (#1) 2025 COVID-19 VACCINE (3 - 2024-2 6 season) 2025 07/27/2021, 06/29/2021 RSV VACCINE (1 - 1-dose 75+ series) 2039 SMOKING STATUS SCREENING (On ce After 26 Yrs) Completed 09/30/2024 HEPATITIS A VACCINES Aged Out No long er eligible based on patient's age to complete this topic HIB VACCINES Aged Out No longer eligi ble based on patient's age to complete this topic MENINGOCOCCAL VACCINES (ACWY) Aged Out No longer eligible based on patient's age to complete this topic MENINGOCOCCAL VACCINES (B) Aged Out N o longer eligible based on patient's age to complete this topic Medical Devices Implanted Type Area Playground Worker Device Identifier Shelf Expiration Date Model / Serial / Lot Screw Screw Right: Hip Tkr Left: Knee Insurance Care Teams Industrial Psychologist Relationship Specialty Start Date End Date Newton Miles MD PCP - General Internal Medicine 09/01/24 Newton Miles MD Internal Medicine 08/06/24 Additional Source Comments The information contained in this document represents components of the legal health record. It is not the complete legal health record.[facility]
--- OUTSIDE RECORDS SUMMARY | 2025-08-30 07:26 | XMS_ITS | Clinical Summary ---
Author Organization [facility] Address [address] [place] [address] Phone Care Team Providers Care Staking Engineer Name Role Phone Newton Miles MD Primary Care Provider [phone] Allergies Active Allergy Reactions Criticality Noted Date Comments Penicillins Hives High 03/20/2006 Medications ibuprofen (ADVIL,MOTRIN) 600 mg tablet Take 1 tablet (600 mg total) by mouth 3 (three) times a day if needed for mild pain (pain). 60 tablet 07/06/2025 Active Active Problems Problem Noted Date Diagnosed Date Morbid obesity with BMI of 4 0.0-44.9, adult (CMS/[facility] V24, [facility] V28) 10/28/2024 Arthritis of knee 02/08/2014 Encounters Date Type Department Care Team Description 07/06/2025 3:00 PM EDT - 07/06/2025 11:59 PM EDT Hospital Encounter [address] [phone] Acute pain of right shoulder; Fall, initial encounter Discharge Disposition: Home or Self Care 07/06/2025 2:30 PM EDT Office Visit Adult Medicine [address] [phone] Newton Miles MD Acute pain of right shoulder (Primary Dx); Fall, initial encounter 06/25/2025 Telephone Adult Medicine [address] [phone] Newton Miles MD from Last 3 Months Immunizations Immunization Administration Dates Next Due Td Tetanus diptheria (Tdvax) 7yo and older 09/06 Tdap Tetanus diptheria acell ular pertussis (Boostrix; Adacel) 7yo and older 06/03/2014 Surgical History Surgery Date Site/Laterality Comments OTHER SURGICAL HISTORY PROCEDURE: [place] ARTHROSCOPY HIP W/FEMOROPLASTY; COMMENT: 1978 COLONOSCOPY 02/13/16 [...] drink = 0.6 oz pur e alcohol) Housing Instability Answer Date Recorde d Are you worried that in the next 2 months you may not have stable housing? No 06/29/2025 Food Access & Nutrition Answer Date Rec orded Do you have access to a vari ety of food including fruits and vegetables? Yes 06/29/2025 Access to Healthcare Answer Date Record ed Within the last 3 months, radha cartagena many times did you visit the emergency department for your medical care? 0 06/29/2025 Health Literacy Answer Date Recorded How often do you need to hav e someone help you when you read instructions, pamphlets, or other written material from your doctor or pharmacy? Rarely 06/29/2025 Caregiver: How often do you need to have someone help you when you read instructions, pamphlets, or other written material from your doctor or pharmacy? Not on file 06/29/2025 Financial Risk Answer Date Recorded How hard is it for you to pa y for the very basics like food, housing, medical care, and air conditioning / heating? Not very hard 06/29/2025 Transportation Answer Date Recorded Has the lack of transportati on kept you from meetings, work, or from getting things needed for daily living? No Has the lack of transportati on kept you from medical appointments or from getting medications? No 06/29/2025 Social Isolation Answer Date Recorded How often do you feel lonely or isolated from th ose around you? Rarely 06/29/2025 Food Risk Answer Date Recorded Within the past 12 months we worried whether our food would run out before we got money to buy more. Never true 06/29/2025 Within the past 12 months th e food we bought just didn't last and we didn't have money to get more. Never true 06/29/2025 Dependent Care Answer Date Recorded Do you need help finding or paying for care for your loved ones. For example, child development consultant or elderly care for an older adult? No 06/29/2025 Education Answer Date Recorded Do you think completing more education or training, like finishing a GED, going to college, or learning a trade, would be helpful for you? No 06/29/2025 Employment and Income Answer Date Recor ded During the last four weeks, have you been actively looking for work? No 06/29/2025 Living Situation Answer Date Recorded What is your living situation? Unrecognized valu e 06/29/2025 Sex and Gender Information Value Date Recorded Sex Assigned at Male 10/29/2024 9:16 AM EST Legal Sex Male 11:46 AM EST Gender Identity Male 10/29/2024 9:16 AM EST Sexual Orientation Straight 10/29/2024 9: 16 AM EST Obstetrics History Last Filed Vital Signs Vital Sign Reading Time Taken Comments Blood Pressure 134/80 07/06/2025 3:02 PM EDT Pulse 80 07/06/2025 2:32 PM EDT Temperature 35.9 C (96.7 F) 07/06/2025 2:32 PM EDT Respiratory Rate - - Oxygen Saturation - - Inhaled Oxygen Concentration - - Weight 117 kg (259 lb) 07/06/2025 2:32 PM EDT Height 172.7 cm (5' 8 ) 07/06/2025 2:32 PM EDT Body Mass Index 39.38 07/06/2025 2:32 PM EDT Plan of Treatment Upcoming Encounters Date Type Department Care Team (Late st Contact Info) Description 01/07/2026 8:30 AM EST Office Visit Adult Medicine [address] [phone] Newton Miles MD [address] [place], [place] Health Maintenance Due Date Last Done Comments Pneumococcal Vaccine: 50+ Years (1 of 1 - PCV) 2014 RSV Immunization Adult Patients (1 - Risk 50-74 years 1-dose series) 2014 Zoster Vaccines (1 of 2) 2014 HIV Screening 10/21/2022 DTaP,Tdap,and Td Vaccines (3 - Td or Tdap) 06/03/2024 06/03/2014, 09/06/2005 COVID-19 Vaccine (3 - 2024-2 6 season) 2025 07/27/2021, 06/29/2021 Influenza Vaccine (#1) 2025 Social Influencers of Health Screening 06/29/2026 06/29/2025 Colorectal Cancer Screening: Colonoscopy 12/23/2028 12/23/2023 Cholesterol Screening (Lipid Panel) 01/01/2029 01/01/2024 Hepatitis C Screening Completed 02/23/2016 Depression Screening Completed 06/29/2025 HIB Vaccines Aged Out No longer eligi [...] age to complete this topic Meningococcal B Vaccine Aged Out No l onger eligible based on patient's age to complete this topic RSV Immunization Patients Under 20 months Aged Out No longer eligible b ased on patient's age to complete this topic Varicella Vaccines Aged Out No longer eligible based on patient's age to complete this topic Procedures Procedure Name Priority Date/Time Associated Diagnosis Comments XR SHOULDER 2+ VIEWS RIGHT Routine 07/06/2025 3:17 PM EDT Acute pain of right shoulder Fall, initial encounter LIPID PANEL Routine 01/01/2024 COLONOSCOPY Routine 12/23/2023 HEPATITIS C SCREENING Routine 02/23/2016 from Last 3 Months or Most Recently Relevant to Health Maintenance Results * XR Shoulder 2+ Views Right (07/06/2025 3:17 PM EDT) Anatomical Region Laterality Modality Upper Extremities, Shoulder Right Radi ographic Imaging 07/06/2025 11:0 4 PM EDT Narrative 07/06/2025 11:05 PM EDT Right shoulder, 4 views. History status post fall. Pain. There is no visible displaced fractures. There is no dislocations. There are mild degenerative changes in the AC joint and glenohumeral joint. There is no abnormal soft tissue calcifications. CONCLUSIONS: No visible fractures or dislocations. Degenerative changes as detailed. -------- FINAL REPORT -------- Dictated By: Holly Whitt Dictated Date: 07/06/2025 23:04 ET Assigned Physician: Holly Whitt Reviewed and Electronically Signed By: Holly Whitt Signed Date: 07/06/2025 23:05 ET Workstation ID: [id number] Transcribed By: Self Edit Transcribed Date: 07/06/2025 23:04 ET Procedure Note Holly Whitt MD - 07/06/2025 Right shoulder, 4 views. History status post fall. Pain. There is no visible displaced fractures. There is no dislocations. Thereare mild degenerative changes in the AC joint and glenohumeral joint.There is no abnormal soft tissue calcifications. CONCLUSIONS: No visible fractures or dislocations. Degenerative changes asdetailed. -------- FINAL REPORT -------- Dictated By: Holly Whitt Dictated Date: 07/06/2025 23:04 ET Assigned Physician: Holly Whitt Reviewed and Electronically Signed By: Holly Whitt Signed Date: 07/06/2025 23:05 ET Workstation ID: [id number] Transcribed By: Self Edit Transcribed Date: 07/06/2025 23:04 ET Newton Miles MD IMG XR PROCEDURES Final Res ult * (ABNORMAL) Lipid panel (01/01/2024) [facility] LDL/HDL Ratio 3 0 - 4 Triglycerides 82 0 - 150 mg/dL Cholesterol 212(A) 0 - 200 mg/dL HDL 77 >=40 mg/dL LDL Cholesterol 119(A) 0 - 100 mg/dL Blood Venous blood specimen / Unknown Result [facility] Historical Provider LAB BLOOD ORDERABLES Lakisha l Result * Colonoscopy (12/23/2023) Pathologist [facility] Colonoscopy No Interpretation , Abstracted Anatomical Region Laterality Modality Other Historical Provider HEALTH MAINTENANCE Final Result * Hepatitis C Screening (02/23/2016) Pathologist [facility] Hepatitis C Screening Abstracted Historical Provider HEALTH MAINTENANCE Final Result from Last 3 Months or Most Recently Relevant to Health Maintenance Insurance [facility] [place] [address] Care Teams Staking Engineer Relationship Specialty Start Date End Date Newton Miles MD [address] [place] [address] PCP - General Internal Medicine 06/12/22
== END 2025-08-30 07:24 | disposition home or self-care (01) ==
LOC: HO.MRI 07:23
PROVIDERS: Visit Provider Orthopaedic Surgery
DX: M25.311 Other instability, right shoulder (principal)
CPT/HCPCS: 73221

== ENCOUNTER 2025-09-01 13:53 | Outpatient (AMB) | payer OTHER, SELFPAY ==
--- NOTE | 2025-09-01 13:57 | A.OFFVIS_ITS ---
Vital Signs 09/01/25 14:05 Height 5 ft 8 in Weight 246 lb BMI 37.4 Intake Visit Reasons: Right shoulder pain and weakness Intake Note: Leon is a 59 year old male right hand dominant who presents with complaints of progressively worsening right shoulder pain and weakness. The patient did injure his left shoulder several years ago. He had an MRI of his left shoulder which showed a chronic, massive rotator cuff tear. The patient states that he injured his right shoulder several months ago. He fell onto his right arm and had acute onset of pain. Since that time he has had difficulty lifting his right hand above shoulder height. He has tried physical therapy which seemed to aggravate his pain. He has also tried Tylenol and anti-inflammatory medicines which gave him minimal relief. The patient states that his right shoulder pain and weakness or now interfering with his activities of daily living and his ability to sleep well through the night. Allergies Penicillins Allergy (Severe, Verified 09/01/25 14:01) hives Medication List - Last Reconciled 09/01/25 by Eriberto Nuñez MD No Known Home Meds [facility] Medical History Low vitamin D level Arthritis Surgical History Hx of colonoscopy (~12/2022) History of surgery on right wrist (Unknown) History of hip surgery (~1978) Social History Household Members: None Housing: House Are you a primary hospice care transitions coordinator to a significant other at home: No Do you presently have visiting nurse or other home services: No Patient Tobacco Use Status: Never used Tobacco service: No 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, 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 Physical Exam Vital Signs: BMI result Body Mass Index 37.4 Const Other: Well-nourished well-developed very friendly male awake alert and oriented x3 in no acute distress Extrem Other: Right shoulder examination shows slightly decreased range of motion when compared to his left shoulder, 4/5 strength with supraspinatus testing, positive impingement signs, tenderness over his acromioclavicular joint, no instability Results Reviewed Results Reviewed: MRI of the patient's right shoulder show severe acromioclavicular joint narrowing, a type 2 acromion, a full-thickness tear of the supraspinatus tendon Assessment & Plan Assessment & Plan (1) Rotator cuff insufficiency of right shoulder: Code(s): M25.311 - Other instability, right shoulder Category: Medical Plan Mr. Trevino presents with progressively worsening right shoulder pain and weakness due to impingement syndrome, acromioclavicular joint arthritis and a full-thickness rotator cuff tear. I had a lengthy discussion with the patient regarding the treatment options. At this point he has failed continued non operative treatments. The risks and benefits of right shoulder surgery were discussed at length with the patient. The patient wishes to proceed with surgery. Will be scheduled for next available date. Surgery will involve right shoulder arthroscopic distal clavicle excision, right shoulder arthroscopic acromioplasty and right shoulder mini open rotator cuff repair. The patient will continue with his range of motion exercises in the meantime to prevent stiffness. He will follow up as instructed. Feel free to call me at any time should questions regarding his orthopedic management arise. I spent 21 minutes in reviewing the patient's records and imaging studies, seeing the patient and documenting in the medical record. Coding Level of Care Code Est Pt Level 3 (68152) Complex EM visit Add On G2211 Diagnoses Rotator cuff insufficiency of right shoulder M25.311
[2025-09-01 14:05] VITALS: BMI 37.4
--- OUTSIDE RECORDS SUMMARY | 2025-09-01 20:02 | XMS_ITS | Clinical Summary ---
Author Organization [facility] Address [address] [facility] [address] [place] [address] Phone Care Team Providers Care Nail Artist Name Role Phone Newton Miles MD Unavailable [phone] Newton Miles MD Primary Care Provider Allergies [...] this topic Medical Devices Implanted Type Area Oxygen Equipment Technician Device Identifier Shelf Expiration Date Model / Serial / Lot Screw Screw Right: Hip Tkr Left: Knee Insurance Care Teams Nail Artist Relationship Specialty Start Date End Date Newton Miles MD PCP - General Internal Medicine 09/01/24 Newton Miles MD Internal Medicine 08/06/24 Additional Source Comments The information contained in this document represents components of the legal health record. It is not the complete legal health record.[facility]
--- OUTSIDE RECORDS SUMMARY | 2025-09-01 20:02 | XMS_ITS | Encounter Summary ---
Author Organization [facility] Address [address] [place] [address] Phone Care Team Providers Care Groundwater Consultant Name Role Phone Newton Miles MD Unavailable [phone] Newton Miles MD Primary Care Provider Encounter Details Date Type Department Care Team (Latest Contact Info) Description 09/07/2024 Ancillary Orders X-ray, [facility] - [address], [address] [place] [address] Beena Hagan MD [address] [place] [address] [address] [place] [address] [email or web address] Bilateral ankle pain, unspecified chronicity (Primary Dx); [...] clinician's provided indication for this examination in [facility]: * Ankle pain, tendon abnormality suspected, neg xray; Retained Foreign Body suspected; Left Ankle MRI evaluating insertional achilles tendonopathy COMPARISON: No relevant comparison. FINDINGS: No radiopaque foreign body. Multifocal dental augmentation and extraction. Procedure Note Lamin Anderson MD - 09/09/2024 XR ORBIT FOR FOREIGN BODY (BILATERAL) Referring clinician's provided indication for this examination in [facility]: *Ankle pain, tendon abnormality suspected, neg xray; [...] tendon documented in this encounter Care Teams Groundwater Consultant Relationship Specialty Start Date End Date Newton Miles MD PCP - General Internal Medicine 09/01/24 Newton Miles MD Internal Medicine 08/06/24 documented as of this encounter Additional Source Comments The information contained in this document represents components of the legal health record. It is not the complete legal health record.[facility]
--- OUTSIDE RECORDS SUMMARY | 2025-09-01 20:02 | XMS_ITS | Encounter Summary ---
Author Organization [facility] Address [address] [place] [address] Phone Care Team Providers Care Regional Sales Representative Name Role Phone Newton Miles MD Unavailable [phone] Newton Miles MD Primary Care Provider Encounter Details Date Type Department Care Team (Late st Contact Info) Description 09/01/2024 Procedure Pass MRI, [facility] - [address], [address] [place] [address] Social History Tobacco Use Types [...] on filedocumented in this encounter Care Teams Regional Sales Representative Relationship Specialty Start Date End Date Newton Miles MD PCP - General Internal Medicine 09/01/24 Newton Miles MD Internal Medicine 08/06/24 documented as of this encounter Additional Source Comments The information contained in this document represents components of the legal health record. It is not the complete legal health record.[facility]
--- OUTSIDE RECORDS SUMMARY | 2025-09-01 20:02 | XMS_ITS | Clinical Summary ---
Author Organization [facility] Address [address] [place] [address] Phone Care Team Providers Care Ham Marker Name Role Phone Newton Miles MD Primary Care Provider [phone] Allergies Active Allergy Reactions Criticality Noted Date Comments Penicillins Hives High 03/20/2006 Medications ibuprofen (ADVIL,MOTRIN) 600 mg tablet Take 1 tablet (600 mg total) by mouth 3 (three) times a day if needed for mild pain (pain). 60 tablet 07/06/2025 Active Active Problems Problem Noted Date Diagnosed Date Morbid obesity with BMI of 4 0.0-44.9, adult (CMS/[facility] V24, [facility] V28) 10/28/2024 Arthritis of knee 02/08/2014 Encounters Date Type Department Care Team Description 07/06/2025 3:00 PM EDT - 07/06/2025 11:59 PM EDT Hospital Encounter [address] [phone] Acute pain of right shoulder; Fall, initial encounter Discharge Disposition: Home or Self Care 07/06/2025 2:30 PM EDT Office Visit Adult Medicine [address] [phone] Newton Miles MD Acute pain of right shoulder (Primary Dx); Fall, initial encounter 06/25/2025 Telephone Adult Medicine [address] [phone] Newton Miles MD from Last 3 Months Immunizations Immunization Administration Dates Next Due Td Tetanus diptheria (Tdvax) 7yo and older 09/06 Tdap Tetanus diptheria acell ular pertussis (Boostrix; Adacel) 7yo and older 06/03/2014 Surgical History Surgery Date Site/Laterality Comments OTHER SURGICAL HISTORY PROCEDURE: [place] ARTHROSCOPY HIP W/FEMOROPLASTY; COMMENT: 1978 COLONOSCOPY 02/13/16 [...] care for your loved ones. For example, early childhood educator aide or elderly care for an older adult? [...] 8:30 AM EST Office Visit Adult Medicine [address] [phone] Newton Miles MD [address] [place], [place] Health Maintenance Due Date Last Done [...] Signed Date: 07/06/2025 23:05 ET Workstation ID: [id number] Transcribed By: Self Edit Transcribed Date: 07/06/2025 [...] Signed Date: 07/06/2025 23:05 ET Workstation ID: [id number] Transcribed By: Self Edit Transcribed Date: 07/06/2025 23:04 ET Newton Miles MD IMG XR PROCEDURES Final Res ult * (ABNORMAL) Lipid panel (01/01/2024) [facility] LDL/HDL Ratio 3 0 - 4 Triglycerides 82 0 - 150 mg/dL Cholesterol 212(A) 0 - 200 mg/dL HDL 77 >=40 mg/dL LDL Cholesterol 119(A) 0 - 100 mg/dL Blood Venous blood specimen / Unknown Result [facility] Historical Provider LAB BLOOD ORDERABLES Lakisha l Result * Colonoscopy (12/23/2023) Pathologist [facility] Colonoscopy No Interpretation , Abstracted Anatomical Region Laterality Modality Other Historical Provider HEALTH MAINTENANCE Final Result * Hepatitis C Screening (02/23/2016) Pathologist [facility] Hepatitis C Screening Abstracted Historical Provider HEALTH MAINTENANCE Final Result from Last 3 Months or Most Recently Relevant to Health Maintenance Insurance [facility] [employer] [facility] Care Teams Ham Marker Relationship Specialty Start Date End Date Newton Miles MD [address] [place] [address] PCP - General Internal Medicine 06/12/22
--- OUTSIDE RECORDS SUMMARY | 2025-09-01 20:02 | XMS_ITS | Encounter Summary ---
Author Organization [facility] Address [address] [place] [address] Phone Care Team Providers Care Sound Editor Name Role Phone Newton Miles MD Unavailable [phone] Newton Miles MD Primary Care Provider Encounter Details Date Type Department Care Team (Late st Contact Info) Description 10/01/2024 Procedure Pass [facility] PERIOPERATIVE DEPT [address] [place] [phone] Social History Tobacco Use Types Packs/Day [...] 10/01/2024 8:03 AM Sara Mckinnon, RN * [place] Suicide Severity Rating Scale (Screener/Recent Self-Report) Question [...] on filedocumented in this encounter Care Teams Sound Editor Relationship Specialty Start Date End Date Newton Miles MD PCP - General Internal Medicine 09/01/24 Newton Miles MD Internal Medicine 08/06/24 documented as of this encounter Additional Source Comments The information contained in this document represents components of the legal health record. It is not the complete legal health record.[facility]
== END 2025-09-01 14:29 | disposition home or self-care (01) ==
LOC: HO.HOS 13:53
PROVIDERS: Visit Provider Orthopaedic Surgery
DX: M25.311 Other instability, right shoulder (principal)
CPT/HCPCS: 99214

== ENCOUNTER → 2025-09-01 13:53 | Outpatient (BNVA) | payer OTHER, SELFPAY | PROVIDERS: Visit Provider Orthopaedic Surgery | DX: M25.311 Other instability, right shoulder (principal); E55.9 Vitamin D deficiency, unspecified | CPT/HCPCS: 99212 ==

== ENCOUNTER 2025-10-29 07:54 | Day surgery (SDC) | payer OTHER, SELFPAY ==
--- OUTSIDE RECORDS SUMMARY | 2025-09-30 02:46 | XMS_ITS | Encounter Summary ---
Author Organization [facility] Address [address] [place] [address] Phone Care Team Providers Care Dulser Name Role Phone Newton Miles MD Unavailable [phone] Newton Miles MD Primary Care Provider Encounter Details Date Type Department Care Team (Late st Contact Info) Description 10/01/2024 Procedure Pass [facility] PERIOPERATIVE DEPT [address] [place] [phone] Social History Tobacco Use Types Packs/Day [...] 10/01/2024 8:03 AM Sara Mckinnon, RN * [place] Suicide Severity Rating Scale (Screener/Recent Self-Report) Question [...] on filedocumented in this encounter Care Teams Dulser Relationship Specialty Start Date End Date Newton Miles MD PCP - General Internal Medicine 09/01/24 Newton Miles MD Internal Medicine 08/06/24 documented as of this encounter Additional Source Comments The information contained in this document represents components of the legal health record. It is not the complete legal health record.[facility]
--- OUTSIDE RECORDS SUMMARY | 2025-09-30 02:46 | XMS_ITS | Encounter Summary ---
Author Organization [facility] Address [address] [place] [address] Phone Care Team Providers Care Dock Pumper Name Role Phone Newton Miles MD Unavailable [phone] Newton Miles MD Primary Care Provider Encounter Details Date Type Department Care Team (Late st Contact Info) Description 09/01/2024 Procedure Pass MRI, [facility] - [address], [address] [place] [address] Social History Tobacco Use Types [...] on filedocumented in this encounter Care Teams Dock Pumper Relationship Specialty Start Date End Date Newton Miles MD PCP - General Internal Medicine 09/01/24 Newton Miles MD Internal Medicine 08/06/24 documented as of this encounter Additional Source Comments The information contained in this document represents components of the legal health record. It is not the complete legal health record.[facility]
--- OUTSIDE RECORDS SUMMARY | 2025-09-30 02:46 | XMS_ITS | Encounter Summary ---
Author Organization [facility] Address [address] [place] [address] Phone Care Team Providers Care Bow Maker Name Role Phone Newton Miles MD Unavailable [phone] Newton Miles MD Primary Care Provider Encounter Details Date Type Department Care Team (Latest Contact Info) Description 09/07/2024 Ancillary Orders X-ray, [facility] - [address], [address] [place] [address] Beena Hagan MD [address] [place] [address] [address] [place] [address] [email or web address] Bilateral ankle pain, unspecified chronicity (Primary Dx); [...] Laterality Modality Face Radiographic Ml ging 09/09/2024 2:51 PM EDT Impressions 09/09/2024 2:52 PM EDT No radiopaque foreign body. Narrative 09/09/2024 2:52 PM EDT XR ORBIT FOR FOREIGN BODY (BILATERAL) Referring clinician's provided indication for this examination in [facility]: * Ankle pain, tendon abnormality suspected, neg xray; Retained Foreign Body suspected; Left Ankle MRI evaluating insertional achilles tendonopathy COMPARISON: No relevant comparison. FINDINGS: No radiopaque foreign body. Multifocal dental augmentation and extraction. Procedure Note Lamin nAderson MD - 09/09/2024 XR ORBIT FOR FOREIGN BODY (BILATERAL) Referring clinician's provided indication for this examination in [facility]: *Ankle pain, tendon abnormality suspected, neg [...] tendon documented in this encounter Care Teams Bow Maker Relationship Specialty Start Date End Date Newton Miles MD PCP - General Internal Medicine 09/01/24 Newton Miles MD Internal Medicine 08/06/24 documented as of this encounter Additional Source Comments The information contained in this document represents components of the legal health record. It is not the complete legal health record.[facility]
--- OUTSIDE RECORDS SUMMARY | 2025-09-30 02:46 | XMS_ITS | Clinical Summary ---
Author Organization [facility] Address [address] [facility] [address] [place] [address] Phone Care Team Providers Care Armored Car Guard And Driver Name Role Phone Newton Miles MD Unavailable [phone] Newton Miles MD Primary Care Provider Allergies [...] this topic Medical Devices Implanted Type Area Support Services Rep Device Identifier Shelf Expiration Date Model / Serial / Lot Screw Screw Right: Hip Tkr Left: Knee Insurance Care Teams Armored Car Guard And Driver Relationship Specialty Start Date End Date Newton Miles MD PCP - General Internal Medicine 09/01/24 Newton Miles MD Internal Medicine 08/06/24 Additional Source Comments The information contained in this document represents components of the legal health record. It is not the complete legal health record.[facility]
[2025-10-15 08:46] VITALS: BMI 38.0
[2025-10-29] VITALS (9 sets, daily range): BP systolic 115–128; BP diastolic 76–88; PULSE 70–77; RESP 14–20; TEMP 36.1–36.8; O2SAT 92–95
[2025-10-29] MEDS: Lactated Ringers 1,000 ML 100 ML IVCONT (08:20)
--- NOTE | 2025-10-29 09:45 | HO.ANESPROP2 ---
Documented by User: Radha Cid NP 10/18/25 12:06 HPI - Anesthesia Eval Consult details Narrative: 60yo M for Right Shoulder Arthroscopy,distal clavicle excision,acromioplasty, 10/29/25 s/p L TKA 01/2024 with spinal and block PMFSH Active Problems Active Problems: All Active Problems Rotator cuff insufficiency of right shoulder (Acute) Rotator cuff insufficiency of left shoulder (Acute) Left shoulder pain (Acute) Status post total left knee replacement (Acute) Arthritis of left knee (Acute) Left knee pain (Acute) Past Medical History Medical History (Updated 10/15/25 @ 08:48 by Carmen Parker RN) HLD (hyperlipidemia) Low vitamin D level Arthritis Family History Family history of problems with anesthesia: No Surgical History Surgical History (Updated 10/15/25 @ 08:44 by Carmen Parker RN) History of total left knee replacement (TKR) (01/27/24) Hx of colonoscopy (~12/2022) History of surgery on right wrist (Unknown) History of hip surgery (~1978) History of Problems with Anesthesia: No Social History Social History (Updated 10/15/25 @ 08:45 by Carmen Parker RN) Household Members: None Housing: House Are you a primary care management specialist to a significant other at home: No Do you presently have visiting nurse or other home services: No Patient Tobacco Use Status: Never used Tobacco e-Cigarette/Vaping Use: Never Used Use of substances other than those prescribed or required for medical reasons: No Have you been hit, kicked, punched, or otherwise hurt by someone within the past year? 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 Allergies Allergy/AdvReac Type Severity Reaction Status Date / Time Penicillins Allergy Severe hives Verified 10/15/25 08:46 Exam Height,Weight and Vital Signs: Height 5 ft 8 in Weight 113.398 kg Assessment and Plan Assessment Anesthesia Assessment: Chart Reviewed Final Anesthetic Review Family History of Problems with Anesthesia: No History of Problems with Anesthesia: No Documented by User: Nicole Zavala DO 10/29/25 10:34 [facility] Past Medical History Medical History (Updated 10/15/25 @ 08:48 by Carmen Parker, LEO) HLD (hyperlipidemia) Low vitamin D level Arthritis Family History Family history of problems with anesthesia: No Surgical History Surgical History (Updated 10/15/25 @ 08:44 by Carmen Parker RN) History of total left knee replacement (TKR) (01/27/24) Hx of colonoscopy (~12/2022) History of surgery on right wrist (Unknown) History of hip surgery (~1978) History of Problems with Anesthesia: No Social History Social History (Updated 10/15/25 @ 08:45 by Carmen Parker RN) Household Members: None Housing: House Are you a primary care management specialist to a significant other at home: No Do you presently have visiting nurse or other home services: No Patient Tobacco Use Status: Never used Tobacco e-Cigarette/Vaping Use: Never Used Use of substances other than those prescribed or required for medical reasons: No Have you been hit, kicked, punched, or otherwise hurt by someone within the past year? 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 Allergies Allergy/AdvReac Type Severity Reaction Status Date / Time Penicillins Allergy Severe hives Verified 10/15/25 08:46 Exam Exam Date and Time: 10/29/25 0945 Height,Weight and Vital Signs: Height 5 ft 8 in Weight 113.398 kg Vital Signs Temperature 98.2 F 10/29/25 08:20 Pulse Rate 73 10/29/25 08:20 Respiratory Rate 20 10/29/25 08:20 Blood Pressure 128/88 10/29/25 08:20 Pulse Oximetry 95 10/29/25 08:20 Oxygen Delivery Method Room Air 10/29/25 08:20 Temperature 98.2 F 10/29/25 08:20 Pulse Rate 73 10/29/25 08:20 Respiratory Rate 20 10/29/25 08:20 Blood Pressure 128/88 10/29/25 08:20 Pulse Oximetry 95 10/29/25 08:20 Oxygen Delivery Method Room Air 10/29/25 08:20 Airway Mallampati Class: II TM Dist: >3cm Neck ROM: Full Loose/Missing/Broken Teeth: Yes (several missing and broken teeth) Heart: S1S2 Lungs: CTAB Assessment and Plan Assessment Anesthesia Assessment: Anesthesia Plan Discussed and Chart Reviewed Final Anesthetic Review Family History of Problems with Anesthesia: No History of Problems with Anesthesia: No NPO: Yes ASA Class: II Final Preanesthetic Review: No Changes in Pt Med Stat, Meds/Allgs Chart Reviewed, Consent Obtained/Reviewed and Anes Risks/Benef Reviewed Patient Risk: Low Procedure Risk: Intermediate Anesthetic Plan Anesthetic Plan: GA, Regional Block (right brachial plexus block) and Agree w/ Assess. and Plan Disposition: Standard PACU
--- NOTE | 2025-10-29 12:33 | P.BOP_ITS ---
Brief Operative Note Date of Service: 10/29/25 Pre-op diagnosis: Right shoulder acromioclavicular joint arthritis, right shoulder impingement syndrome, right shoulder rotator cuff tear Post-op diagnosis: same Procedure: Right shoulder arthroscopic distal clavicle excision, right shoulder arthroscopic acromioplasty, right shoulder mini open rotator cuff repair Implants: 2 suture anchors ([employer] Twinfix anchor with #2 Ultrabraid suture) Surgeon: Eriberto Nuñez MD Anesthesia: GETA and regional Was an Gasoline Engine Assembler used for this Procedure?: No Estimated blood loss (mL): 20 Pathology: none sent Condition: stable Disposition: PACU
--- NOTE | 2025-10-29 12:34 | P.OP_ITS ---
Operative Note Operative Note Date of Service: 10/29/25 Narrative: After the patient was identified as Leon Trevino and his right shoulder was initialed by myself the patient was brought to the holding area where a right shoulder interscalene regional block was performed by the anesthesiologist in routine fashion. The patient was then brought to the operating room where general anesthesia was induced by the anesthesiologist in routine fashion. Because of the patient's allergy to penicillins he was given 600 mg of IV clindamycin preoperatively for infection prophylaxis. Examination under anesthesia of the patient's right shoulder showed full passive range of motion of the patient's right shoulder when compared to the left. The patient was gently positioned in the beach chair position with all bony prominences well padded. The patient's right shoulder region and upper extremity were prepped and draped in sterile fashion. A formal time-out was completed. A #11 scalpel blade was used to make a posterior portal 2 cm inferior and 1 cm medial to the posterolateral corner of the acromion. Blunt trocar technique was used to enter the glenohumeral joint in routine fashion. An anterior portal was made just lateral to the coracoid process after proper positioning was confirmed using a spinal needle. Diagnostic arthroscopy showed minimal degenerative changes of the glenoid and humeral head articular surfaces. There was a full-thickness tear of the supraspinatus tendon. There was no evidence of injury to the biceps tendon or its insertion onto the glenoid. There was no inflammation of the anterior joint capsule. The arthroscope was then placed from the posterior portal into the subacromial space. A lateral portal was made 2 fingerbreadths lateral to the anterior lateral corner of the acromion. The ArthroCare Wand was used to ablate soft tissues along the undersurface of the acromion as well as to excise the coracoacromial ligament. There was a sharp spur along the undersurface of the acromion which was removed using the hooded bur. The arthroscope was then placed into the lateral portal and the acromioplasty was completed with the bur in the posterior portal using the posterior aspect of the acromion as a cutting block. The ArthroCare Wand was then brought in through the anterior portal and was used to ablate soft tissues along the acromioclavicular joint and distal clavicle. The posterior and superior ligamentous structures were left intact. A distal clavicle excision of 8 mm was performed using the hooded bur. Any remaining bursal tissue was removed using the arthroscopic shaver. The subacromial space was irrigated and then drained. All arthroscopic instruments were removed. Sterile gloves were changed and the shoulder was once again prepped with Betadine. A #15 scalpel blade was used to extend the lateral portal to the lateral edge of the acromion. The subacromial tissues were dissected using electrocautery down to the superficial deltoid fascia. The trocar split in the anterior raphe of the deltoid was then extended to the lateral edge of the acromion using electrocautery and curved Monroy scissors. Any remaining bursal tissue was removed using curved Monroy scissors. Subacromial and subdeltoid adhesions were bluntly dissected. The undersurface of the acromion was palpated and it was smooth. A #2 Ethibond tag suture was placed into the supraspinatus tendon. The tendon was easily mobilized to its insertion point on the glenoid. The wound was irrigated with copious amounts of normal saline solution. Two suture anchors were placed into the greater tuberosity in routine fashion. The rotator cuff repair was then performed using horizontal mattress sutures under minimal tension with the patient's elbow at their side. Following the repair the shoulder was taken through a full range of motion. The repair was stable. The wound was irrigated with copious amounts of normal saline solution. The superficial and deep deltoid fascia were closed with #1 Vicryl [id number] interrupted suture. The wound was once again irrigated. The subcutaneous tissues were closed with 2-0 Vicryl interrupted suture. The skin was closed with 3-0 Prolene subcuticular suture and Steri- Strips. The anterior and posterior portals were closed with 3-0 nylon interrupted suture. Dry sterile dressing was placed over all incisions. The patient's right upper extremity was placed into a sling. The patient was awoken and extubated in the operating room. The patient was transferred to the recovery room in stable condition.
== END 2025-10-29 14:16 | disposition home or self-care (01) ==
PROVIDERS: Visit Provider Orthopaedic Surgery
PROC: (CPT 29805; principal; 2025-10-29 10:00)
DX: M75.121 Complete rotator cuff tear or rupture of right shoulder, not specified as traumatic (principal); M75.41 Impingement syndrome of right shoulder; M19.011 Primary osteoarthritis, right shoulder; M25.511 Pain in right shoulder; M25.311 Other instability, right shoulder; E55.9 Vitamin D deficiency, unspecified; Z88.0 Allergy status to penicillin; Z87.828 Personal history of other (healed) physical injury and trauma; Z98.890 Other specified postprocedural states
CPT/HCPCS: 23412; 29826; 29824; C1713; J0131; J0165; J0736; J1100; J2003; J2250; J2371; J2405; J2704; J2795; J3010

== ENCOUNTER → 2025-10-29 07:54 | Outpatient (BNV) | payer OTHER, SELFPAY | PROVIDERS: Visit Provider Orthopaedic Surgery | DX: M75.41 Impingement syndrome of right shoulder (principal); M19.011 Primary osteoarthritis, right shoulder; S46.011A Strain of muscle(s) and tendon(s) of the rotator cuff of right shoulder, initial encounter | CPT/HCPCS: 23410; 29824 ==

== ENCOUNTER 2025-11-09 11:40 | Outpatient (AMB) | payer OTHER, SELFPAY ==
--- NOTE | 2025-11-09 11:46 | MHC.OFFVIS ---
Intake Visit Reasons: PO RT shoulder 10/29/25 DR Intake Note: Leon is a 60 year old male who presents with complaints of mild discomfort in his right shoulder after undergoing right shoulder rotator cuff repair surgery on 10/29/2025. He denies any fevers or chills. He has been resting his shoulder as per my instructions. He takes oxycodone which gives him fairly good relief. Allergies Penicillins Allergy (Severe, Verified 11/09/25 11:48) hives Medication List - Last Reconciled 11/09/25 by Eriberto Nuñez MD oxycodone 10 mg (2 x 5 mg) PO Q4H PRN PFSH Medical History (Updated 11/09/25 @ 12:28 by Eriberto Nuñez MD) HLD (hyperlipidemia) Low vitamin D level Arthritis Surgical History History of total left knee replacement (TKR) (01/27/24) Hx of colonoscopy (~12/2022) History of surgery on right wrist (Unknown) History of hip surgery (~1978) Social History Household Members: None Housing: House Are you a primary intensive care ambulance paramedic to a significant other at home: No Do you presently have visiting nurse or other home services: No Patient Tobacco Use Status: Never used Tobacco e-Cigarette/Vaping Use: Never Used Advance Directives Date on File: 01/28/24 service: No 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 Trevino is doing well after undergoing right shoulder rotator cuff repair surgery on 10/29/2025. His sutures were removed and Steri-Strips placed over his incisions. He will begin gentle passive range of motion exercises. I will hold off on active lifting until he is 8 weeks out from surgery. Will contact me prior to his follow-up appointment in 4-6 weeks should any questions or concerns arise. Coding Level of Care Code Global (70218) Diagnoses Right shoulder pain M25.511
--- OUTSIDE RECORDS SUMMARY | 2025-11-09 15:43 | XMS_ITS | Encounter Summary ---
Author Organization [facility] Address [address] [place] [phone] Phone Care Team Providers Care Turf Farm Worker Name Role Phone Newton Miles MD Unavailable [phone] Newton Miles MD Primary Care Provider Encounter Details Date Type Department Care Team (Late st Contact Info) Description 10/01/2024 Procedure Pass [facility] [address] [place] [id number] Social History Tobacco Use Types Packs/Day [...] on filedocumented in this encounter Care Teams Turf Farm Worker Relationship Specialty Start Date End Date Newton Miles MD PCP - General Internal Medicine 09/01/24 Newton Miles MD Internal Medicine 08/06/24 documented as of this encounter Additional Source Comments The information contained in this document represents components of the legal health record. It is not the complete legal health record.[facility]
--- OUTSIDE RECORDS SUMMARY | 2025-11-09 15:43 | XMS_ITS | Clinical Summary ---
Author Organization [facility] Address [address] [facility] [address] [place] [id number] Phone Care Team Providers Care Auto Vinyl Top Installer Name Role Phone Newton Miles MD Unavailable [phone] Newton Miles MD Primary Care Provider Allergies [...] on patient's age to complete this topic Goals Goal Patient Goal Type Associated Problems Recent Progress Patient-Stated? Author Autogenera lizzette Goal Care Plan Autogenerated Problem No [employer] Implanted Type Area Optical Systems Engineer Device Identifier Shelf Expiration Date Model / Serial / Lot Screw Screw Right: Hip Tkr Left: Knee Additional Health Concerns Active Problems Noted Date Diagnosed Date Autogenerated Problem 10/02/[address] [place] [address] Care Teams Auto Vinyl Top Installer Relationship Specialty Start Date End Date Newton Miles MD PCP - General Internal Medicine 09/01/24 Newton Miles MD Internal Medicine 08/06/24 Additional Source Comments The information contained in this document represents components of the legal health record. It is not the complete legal health record.[facility]
--- OUTSIDE RECORDS SUMMARY | 2025-11-09 15:43 | XMS_ITS | Encounter Summary ---
Author Organization [facility] Address [address] [place] [address] Phone Care Team Providers Care Nascar Racer Name Role Phone Newton Miles MD Unavailable [phone] Newton Miles MD Primary Care Provider Encounter Details Date Type Department Care Team (Latest Contact Info) Description 09/07/2024 Ancillary Orders X-ray, [facility] - [address], [address] [place] [address] Beena Hagan MD [address] [place] [address] [address] [place] [address] [email or web address] Bilateral ankle pain, unspecified chronicity [...] clinician's provided indication for this examination in [facility]: * Ankle pain, tendon abnormality suspected, neg xray; Retained Foreign Body suspected; Left Ankle MRI evaluating insertional achilles tendonopathy COMPARISON: No relevant comparison. FINDINGS: No radiopaque foreign body. Multifocal dental augmentation and extraction. Procedure Note Lamin Anderson MD - 09/09/2024 XR ORBIT FOR FOREIGN BODY (BILATERAL) Referring clinician's provided indication for this examination in [facility]: *Ankle pain, tendon abnormality suspected, neg [...] tendon documented in this encounter Care Teams Nascar Racer Relationship Specialty Start Date End Date Newton Miles MD PCP - General Internal Medicine 09/01/24 Newton Miles MD Internal Medicine 08/06/24 documented as of this encounter Additional Source Comments The information contained in this document represents components of the legal health record. It is not the complete legal health record.[facility]
--- OUTSIDE RECORDS SUMMARY | 2025-11-09 15:43 | XMS_ITS | Clinical Summary ---
Author Organization [facility] Address [address] [place] [address] Phone Care Team Providers Care Preschool Aide Name Role Phone Newton Miles MD Primary Care Provider [phone] Allergies Active Allergy Reactions Criticality Noted Date Comments Penicillins Hives High 03/20/2006 Medications ibuprofen (ADVIL,MOTRIN) 600 mg tablet Take 1 tablet (600 mg total) by mouth 3 (three) times a day if needed for mild pain (pain). 60 tablet 07/06/2025 Active Active Problems Problem Noted Date Diagnosed Date Morbid obesity with BMI of 40.0-44.9, adult 10/11 Arthritis of knee 02/08/2014 Immunizations Immunization Administration Dates Next Due Td [...] Record ed Within the last 3 months, ho w many times did you visit the emergency [...] for your loved ones. For example, child nutrition assistant or elderly care for an older adult? [...] Orientation Straight 10/29/2024 9: 16 AM EST Last Filed Vital Signs Vital Sign Reading [...] 8:30 AM EST Office Visit Adult Medicine [address] [phone] Newton Miles MD [address] [place] [address] 03/14/2026 3:00 PM EDT Office Visit Internal Medicine - [place] [address] [phone] Beny Chavis MD [address] [facility] [address] [place] [address] Health Maintenance Due Date Last Done Comments [...] ORDERABLES Lakisha l Result * Colonoscopy (12/23/2023) Colonoscopy No Interpretation , Abstracted Anatomical Region Laterality Modality Other Historical Provider HEALTH MAINTENANCE Final Result * Hepatitis C Screening (02/23/2016) Hepatitis C Screening Abstracted Historical Provider HEALTH MAINTENANCE Final Result from Last 3 Months or Most Recently Relevant to Health Maintenance Insurance [facility] Care Teams Preschool Aide Relationship Specialty Start Date End Date Newton Miles MD [address] [place] [address] PCP - General Internal Medicine 06/12/22
--- OUTSIDE RECORDS SUMMARY | 2025-11-09 15:43 | XMS_ITS | Encounter Summary ---
Author Organization [facility] Address [address] [place] [address] Phone Care Team Providers Care Manufacturing Production Manager Name Role Phone Newton Miles MD Unavailable [phone] Newton Miles MD Primary Care Provider Encounter Details Date Type Department Care Team (Late st Contact Info) Description 09/01/2024 Procedure Pass MRI, [facility] - [address], [address] [place] [address] Social History Tobacco Use Types [...] on filedocumented in this encounter Care Teams Manufacturing Production Manager Relationship Specialty Start Date End Date Newton Miles MD PCP - General Internal Medicine 09/01/24 Newton Miles MD Internal Medicine 08/06/24 documented as of this encounter Additional Source Comments The information contained in this document represents components of the legal health record. It is not the complete legal health record.[facility]
== END 2025-11-09 12:01 | disposition home or self-care (01) ==
LOC: HO.HOS 11:40
PROVIDERS: Visit Provider Orthopaedic Surgery
DX: M25.511 Pain in right shoulder (principal)
CPT/HCPCS: 99024

== ENCOUNTER → 2025-11-09 11:40 | Outpatient (BNVA) | payer OTHER, SELFPAY | PROVIDERS: Visit Provider Orthopaedic Surgery | DX: Z47.89 Encounter for other orthopedic aftercare (principal); M25.511 Pain in right shoulder; G89.18 Other acute postprocedural pain; Z98.890 Other specified postprocedural states; Z79.891 Long term (current) use of opiate analgesic | CPT/HCPCS: 99212 ==